=== PATIENT | male | born 1955 | race Caucasian/White ===

== ENCOUNTER 2019-06-26 08:54 | Inpatient (IN) ==
[2019-06-26] MEDS ORDERED: SODIUM CHLORIDE 0.9% 1000ML 1,000 ML IV ONE (09:19)
[2019-06-26 09:38] LABS: Basophils # (auto) 0.03 K/uL (0-0.2); Basophils % (auto) 0.3 %; Eosinophils # (auto) 0.09 K/uL (0-0.5); Eosinophils % (auto) 0.8 %; Hematocrit (blood only) 40.9 % (42-52); Hemoglobin 13.8 g/dL (14.0-18.0); Immature Granulocytes # (auto) 0.04 K/uL (0.00-0.02); Immature Granulocytes % (auto) 0.4 %; Lymphocytes # (auto) 1.63 K/uL (1.2-3.4); Mean Corpuscular Hemoglobin 30.5 pg (25-34); Mean Corpuscular Hgb Conc 33.7 g/dL (32-36); Mean Corpuscular Volume 90.3 fL (80-100); Mean Platelet Volume 9.4 fL (7.4-10.4); Monocytes # (auto) 0.67 K/uL (0.11-0.59); Monocytes % (auto) 6.2 %; Neutrophils # (auto) 8.38 K/uL (1.4-6.5); Neutrophils % (auto) 77.3 %; Platelet Count 178 K/uL (130-400); RDW Coefficient of Variation 13.2 % (11.5-14.5); RDW Standard Deviation 43.3 fL (36.4-46.3); Red Blood Count 4.53 M/uL (4.7-6.1); White Blood Count 10.84 K/uL (4.8-10.8)
--- NOTE | 2019-06-26 09:52 | CT Scan Report ---
CT head/brain wo con CLINICAL HISTORY: 63 years-old Male presenting with Pt c/o witnessed seizure lasting 1 to 2 minutes. TECHNIQUE: Multidetector CT imaging of the head was performed without the use of intravenous contrast . IV contrast: None. One or more dose lowering techniques were used consistent with the principles of ALARA (as low as reasonably achievable), including automatic exposure control, mA or kV adjustment t o individual patient size, and/or use of iterative reconstruction. COMPARISON: None. CT DOSE (mGy.cm): The estimated cumulative dose is 537.48 mGy.cm. 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 Ventricles and sulci normal in size. No hemorrhage. Extensive patchy periventricular and subcortical white matter hypoattenuation, nonspecific but likely indicative of chronic small vessel ischemic rojas ge. No acute territorial infarct. No mass effect or midline shift. No extra-axial fluid collection. P aranasal sinuses and mastoid air cells clear. Calvarium intact. IMPRESSION: 1. Presumed moderate to severe chronic small vessel ischemic change. The patchy nature of the diseas e makes the diagnosis less certain. Contrast enhanced brain MR could be considered for better evaluat ion to ensure the absence of underlying lesions. 2. No other evidence of acute intracranial abnormality. ACT 112: Negative or not required by law. Electronically signed by: Juvencio Frank M.D. 06/26/2019 9:50 AM
[2019-06-26 10:16] LABS: Alanine Aminotransferase 30 U/L (12-78); Albumin Globulin Ratio 0.8 (0.9-2); Albumin Level 3.2 gm/dl (3.4-5.0); Alkaline Phosphatase 76 U/L (45-117); BUN Creatinine Ratio 19.5 (10-20); Bilirubin,Total 1.3 mg/dl (0.2-1); Blood Urea Nitrogen 22 mg/dl (7-18); Calcium 8.5 mg/dl (8.5-10.1); Carbon Dioxide 21 mmol/L (21-32); Chloride 108 mmol/L (98-107); Creatine Kinase MB 1.8 ng/ml (0.5-3.6); Creatinine Clr Calc Pharmacy 77.5 ml/min; Est GFR (African American) 80.9; Est GFR (Non-African American) 69.8; Globulin 4.1 gm/dl (2.5-4.0); Glucose 147 mg/dl (70-99); Sodium 136 mmol/L (136-145); Total Protein 7.3 gm/dl (6.4-8.2); Troponin I 0.094 ng/ml (0-0.045)
[2019-06-26 10:56] LABS: Potassium 4.1 mmol/L (3.5-5.1)
[2019-06-26] MEDS ORDERED: GADOBUTROL 65ML VIAL IV PRN (12:48)
--- NOTE | 2019-06-26 12:54 | Magnetic Resonance Report ---
MRI OF THE BRAIN WITHOUT AND WITH IV CONTRAST CLINICAL HISTORY: Dizziness, seizure versus post syncope seizure-like activity. COMPARISON STUDY: Noncontrast head CT performed the same day. TECHNIQUE: MRI of the brain was performed from the vertex to the skull base utilizing various T1 and T2 weighted sequences. Following the IV administration of 10 mL of Gadavist contrast, additional enha nced images were obtained. FINDINGS: Sagittal T1, axial diffusion, proton density and T2 weighted axial, coronal FLAIR, and pre and post a xial T1-weighted images were acquired. These were supplemented with post gadolinium coronal T1 weight ed images. No intra or extra-axial mass lesions are visualized. Axial diffusion-weighted images reveal no evidence of acute or subacute infarction. There is no evidence of ventricular dilatation. Proton density T2-weighted and FLAIR images reveal extensive scattered foci of increased T2 signal wi thin the white matter, likely on a small vessel basis. The hippocampal formations appear symmetric. There are no abnormal flow voids. There is no evidence of pathologic enhancement. IMPRESSION: 1. No acute intracranial findings 2. No evidence of acute or subacute infarction 3. No evidence of intracranial mass 4. Extensive white matter disease likely on a small vessel ischemic basis ACT 112: Negative or not required by law. Electronically signed by: Shimon Hummel M.D. 06/26/2019 12:52 PM
--- NOTE | 2019-06-26 13:24 | Emergency Department Note ---
Entered by Suni Haro acting as a scribe for Ivan Quarles MD History of Present Illness General Chief complaint: Seizure Stated complaint: seizure Time Seen by Provider: 06/26/19 09:05 Source: patient Mode of arrival: EMS History of Present Illness Onset (ago): hour(s) less than 1 Location: head (seizure) Pain Consistency: + other (episode) Quality: + other (seizure) Associated symptoms: + seizure and + other (Positive fall, dizziness. Negative abdominal pain. hitting head. ); no headaches and no syncope Treatments prior to arrival: other (normal saline) The patient is a 63 year old male presenting to the Emergency Department via EMS complaining of an episode of a seizure occurring less than 1 hour ago. The patient reports that he went up to go to breakfast and began to seize. He states that he fell slowly to the ground and a interface control officer explained that the patient was lowered to the ground. The interface control officer reports that the patient seized for 1 to 2 minutes. The patient notes that he felt dizzy before he seized. 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 The patient reports that he has never seized before. He states that he has hyperlipidemia and no pertinent past surgical history. The patient denies hitting his head, headache and abdominal pain. Home Medications Home Medications Medication Instructions Recorded Confirmed Type rosuvastatin [Crestor] 40 mg PO DAILY 06/26/19 06/26/19 History Allergies Allergy/AdvReac Type Severity Reaction Status Date / Time No Known Allergies Allergy Unverified 06/26/19 09:40 Past Med/Surg History Medical History Hyperlipidemia Surgical History No pertinent past surgical history Social History Feels Safe at Home: Yes Smoking Status: Former smoker Review of Systems See HPI for pertinent positives & negatives. and A total of 10 systems reviewed and were otherwise negative Physical Exam Vital Signs Vital Signs - 24 hr 06/26/19 08:55 06/26/19 08:59 06/26/19 09:01 Temperature 36.4 C L Temperature Source Oral Pulse Rate 83 83 84 Pulse Rate [Finger] Pulse Rate from SpO2 Sensor 84 76 Respiratory Rate 20 17 21 Respiratory Effort / Characteristics Non-Labored Spontaneous Respiratory Depth Normal Respiratory Pattern Regular Blood Pressure 96/60 L 96/60 L 98/67 L Blood Pressure [Right Arm] Blood Pressure Mean 72 65 71 Blood Pressure Mean [Right Arm] Blood Pressure Position Lying Pulse Oximetry 88 L 90 89 L Oxygen Delivery Method Room Air Nasal Cannula Nasal Cannula Oxygen Flow Rate 2 2 Sepsis Recent Fever Within 48 Hours No Sepsis New/Unexplained Change in Mental Status No Sepsis Action Taken by Nursing No Action Required 06/26/19 09:02 06/26/19 09:15 06/26/19 09:16 Temperature Temperature Source Pulse Rate 82 106 H 80 Pulse Rate [Finger] Pulse Rate from SpO2 Sensor 79 92 H 80 Respiratory Rate 16 15 21 Respiratory Effort / Characteristics Respiratory Depth Respiratory Pattern Blood Pressure 105/67 Blood Pressure [Right Arm] Blood Pressure Mean 72 Blood Pressure Mean [Right Arm] Blood Pressure Position Pulse Oximetry 90 94 98 Oxygen Delivery Method Nasal Cannula Nasal Cannula Nasal Cannula Oxygen Flow Rate 2 2 2 Sepsis Recent Fever Within 48 Hours Sepsis New/Unexplained Change in Mental Status Sepsis Action Taken by Nursing 06/26/19 09:30 06/26/19 09:31 06/26/19 09:58 Temperature Temperature Source Pulse Rate 80 78 78 Pulse Rate [Finger] Pulse Rate from SpO2 Sensor 75 78 77 Respiratory Rate 18 17 17 Respiratory Effort / Characteristics Respiratory Depth Respiratory Pattern Blood Pressure 101/70 120/77 Blood Pressure [Right Arm] Blood Pressure Mean 83 92 Blood Pressure Mean [Right Arm] Blood Pressure Position Pulse Oximetry 96 97 99 Oxygen Delivery Method Nasal Cannula Nasal Cannula Nasal Cannula Oxygen Flow Rate 2 2 2 Sepsis Recent Fever Within 48 Hours Sepsis New/Unexplained Change in Mental Status Sepsis Action Taken by Nursing 06/26/19 10:00 06/26/19 10:01 06/26/19 10:15 Temperature Temperature Source Pulse Rate 79 80 85 Pulse Rate [Finger] Pulse Rate from SpO2 Sensor 77 73 66 Respiratory Rate 16 17 13 Respiratory Effort / Characteristics Respiratory Depth Respiratory Pattern Blood Pressure 108/74 111/75 Blood Pressure [Right Arm] Blood Pressure Mean 77 93 Blood Pressure Mean [Right Arm] Blood Pressure Position Pulse Oximetry 98 97 99 Oxygen Delivery Method Nasal Cannula Nasal Cannula Nasal Cannula Oxygen Flow Rate 2 2 2 Sepsis Recent Fever Within 48 Hours Sepsis New/Unexplained Change in Mental Status Sepsis Action Taken by Nursing 06/26/19 10:30 06/26/19 10:31 06/26/19 10:45 Temperature Temperature Source Pulse Rate 79 78 71 Pulse Rate [Finger] Pulse Rate from SpO2 Sensor 78 76 71 Respiratory Rate 16 16 15 Respiratory Effort / Characteristics Respiratory Depth Respiratory Pattern Blood Pressure 119/81 101/73 Blood Pressure [Right Arm] Blood Pressure Mean 97 83 Blood Pressure Mean [Right Arm] Blood Pressure Position Pulse Oximetry 99 98 99 Oxygen Delivery Method Nasal Cannula Nasal Cannula Nasal Cannula Oxygen Flow Rate 2 2 2 Sepsis Recent Fever Within 48 Hours Sepsis New/Unexplained Change in Mental Status Sepsis Action Taken by Nursing 06/26/19 10:46 06/26/19 11:00 06/26/19 11:01 Temperature Temperature Source Pulse Rate 72 75 74 Pulse Rate [Finger] Pulse Rate from SpO2 Sensor 72 75 75 Respiratory Rate 14 17 16 Respiratory Effort / Characteristics Respiratory Depth Respiratory Pattern Blood Pressure 130/86 Blood Pressure [Right Arm] Blood Pressure Mean 91 Blood Pressure Mean [Right Arm] Blood Pressure Position Pulse Oximetry 98 98 97 Oxygen Delivery Method Nasal Cannula Nasal Cannula Nasal Cannula Oxygen Flow Rate 2 2 2 Sepsis Recent Fever Within 48 Hours Sepsis New/Unexplained Change in Mental Status Sepsis Action Taken by Nursing 06/26/19 11:15 06/26/19 11:30 06/26/19 11:31 Temperature Temperature Source Pulse Rate 71 68 66 Pulse Rate [Finger] Pulse Rate from SpO2 Sensor 71 68 68 Respiratory Rate 15 14 14 Respiratory Effort / Characteristics Respiratory Depth Respiratory Pattern Blood Pressure 111/79 106/75 Blood Pressure [Right Arm] Blood Pressure Mean 85 83 Blood Pressure Mean [Right Arm] Blood Pressure Position Pulse Oximetry 98 98 98 Oxygen Delivery Method Nasal Cannula Nasal Cannula Nasal Cannula Oxygen Flow Rate 2 2 2 Sepsis Recent Fever Within 48 Hours Sepsis New/Unexplained Change in Mental Status Sepsis Action Taken by Nursing 06/26/19 11:45 06/26/19 11:46 06/26/19 12:00 Temperature Temperature Source Pulse Rate 67 65 66 Pulse Rate [Finger] Pulse Rate from SpO2 Sensor 69 64 65 Respiratory Rate 14 14 15 Respiratory Effort / Characteristics Respiratory Depth Respiratory Pattern Blood Pressure 112/77 113/67 Blood Pressure [Right Arm] Blood Pressure Mean 83 69 Blood Pressure Mean [Right Arm] Blood Pressure Position Pulse Oximetry 99 98 99 Oxygen Delivery Method Oxygen Flow Rate Sepsis Recent Fever Within 48 Hours Sepsis New/Unexplained Change in Mental Status Sepsis Action Taken by Nursing 06/26/19 12:01 06/26/19 12:54 06/26/19 12:55 Temperature Temperature Source Pulse Rate 65 Pulse Rate [Finger] 73 Pulse Rate from SpO2 Sensor 65 76 80 Respiratory Rate 16 16 Respiratory Effort / Characteristics Non-Labored Respiratory Depth Normal Respiratory Pattern Blood Pressure 118/78 Blood Pressure [Right Arm] 118/78 Blood Pressure Mean 88 Blood Pressure Mean [Right Arm] 91 Blood Pressure Position Pulse Oximetry 99 94 94 Oxygen Delivery Method Oxygen Flow Rate Sepsis Recent Fever Within 48 Hours Sepsis New/Unexplained Change in Mental Status Sepsis Action Taken by Nursing 06/26/19 13:00 Temperature Temperature Source Pulse Rate Pulse Rate [Finger] Pulse Rate from SpO2 Sensor 70 Respiratory Rate Respiratory Effort / Characteristics Respiratory Depth Respiratory Pattern Blood Pressure Blood Pressure [Right Arm] Blood Pressure Mean Blood Pressure Mean [Right Arm] Blood Pressure Position Pulse Oximetry 94 Oxygen Delivery Method Oxygen Flow Rate Sepsis Recent Fever Within 48 Hours Sepsis New/Unexplained Change in Mental Status Sepsis Action Taken by Nursing GENERAL: Awake, alert, well-appearing, in no acute distress HENT: Normocephalic, atraumatic. Oropharynx unremarkable. EYES: Normal conjunctiva. Sclera non-icteric. NECK: Supple. No nuchal rigidity. FROM. No JVD. RESPIRATORY: Clear to auscultation. CARDIAC: Regular rate, normal rhythm. Extremities warm and well perfused. Pulses equal. ABDOMEN: Soft, non-distended. No tenderness to palpation. No rebound or guarding. No masses. RECTAL: Deferred. MUSCULOSKELETAL: Chest examination reveals no tenderness. The back is symmetrical on inspection without obvious abnormality. There is no CVA tenderness to palpation. No joint edema. LOWER EXTREMITIES: Calves are equal size bilaterally and non-tender. No edema. No discoloration. NEURO: Normal sensorium. No sensory or motor deficits noted. SKIN: No rash or jaundice noted. Course Course 917: The patient was evaluated in room C8, and a complete history and physical examination were performed. 1041: I discussed the patients case with Alejandra West PA-C. Dr. Eugenio Bansal hospitalist will evaluate the patient for further management. 1045: I updated the patient at this time. Administered Medications Gadobutrol (Gadavist 65ml) 10 ml IV ONCE PRN PRN Reason: Interaction Checking Stop: 06/30/19 12:47 Last Admin: 06/26/19 12:49 Dose: 10 ml Documented by: [id number] Discontinued Medications Sodium Chloride (Nss 1000ml) 1,000 mls @ 999 mls/hr IV .Q1H1M ONE Stop: 06/26/19 10:19 Last Infusion: 06/26/19 10:34 Dose: 0 mls/hr Documented by: [id number] Admin: 06/26/19 09:28 Dose: 999 mls/hr Documented by: [id number] Medical Decision Making Differential Diagnosis Differential diagnosis includes etiologies such as infection, hypoglycemia, electrolyte abnormalities, cardiac sources, intracerebral event, trauma, toxicologic, neurologic, as well as others were entertained. Medical Records Attestation: I reviewed the patient's medical records. Home Medications Current Medication List: was personally reviewed by me Laboratory Data Attestation: I reviewed the patient's lab results. Result diagrams: 06/26/19 09:29 06/26/19 10:26 Lab Results 06/26/19 06/26/19 06/26/19 Range/Units 09:29 09:29 10:26 WBC 10.84 H (4.8-10.8) K/uL RBC 4.53 L (4.7-6.1) M/uL Hgb 13.8 L (14.0-18.0) g/dL Hct 40.9 L (42-52) % MCV 90.3 (80-100) fL MCH 30.5 (25-34) pg MCHC 33.7 (32-36) g/dL RDW Std Deviation 43.3 (36.4-46.3) fL RDW Coeff of Morales 13.2 (11.5-14.5) % Plt Count 178 (130-400) K/uL MPV 9.4 (7.4-10.4) fL Immature Gran % (Auto) 0.4 % Neut % (Auto) 77.3 % Lymph % (Auto) 15.0 % Glades % (Auto) 6.2 % Eos % (Auto) 0.8 % Baso % (Auto) 0.3 % Immature Gran # (Auto) 0.04 H (0.00-0.02) K/uL Neut # (Auto) 8.38 H (1.4-6.5) K/uL Lymph # (Auto) 1.63 (1.2-3.4) K/uL Glades # (Auto) 0.67 H (0.11-0.59) K/uL Eos # (Auto) 0.09 (0-0.5) K/uL Baso # (Auto) 0.03 (0-0.2) K/uL Sodium 136 (136-145) mmol/L Potassium 4.1 (3.5-5.1) mmol/L Chloride 108 H (98-107) mmol/L Carbon Dioxide 21 (21-32) mmol/L Anion Gap 7.0 (3-11) BUN 22 H (7-18) mg/dl Creatinine 1.13 (0.6-1.4) mg/dl Est Cr Clr Drug Dosing 77.5 ml/min Est GFR ( Amer) 80.9 Est GFR (Non-Af Amer) 69.8 BUN/Creatinine Ratio 19.5 (10-20) Glucose 147 H (70-99) mg/dl Calcium 8.5 (8.5-10.1) mg/dl Total Bilirubin 1.3 H (0.2-1) mg/dl AST 29 (15-37) U/L ALT 30 (12-78) U/L Alkaline Phosphatase 76 (45-117) U/L Total Creatine Kinase (39-308) U/L CK-MB (CK-2) 1.8 (0.5-3.6) ng/ml CK/CKMB % Calc TNP Troponin I 0.094 H* (0-0.045) ng/ml Total Protein 7.3 (6.4-8.2) gm/dl Albumin 3.2 L (3.4-5.0) gm/dl Globulin 4.1 H (2.5-4.0) gm/dl Albumin/Globulin Ratio 0.8 L (0.9-2) Imaging Data Radiologist's Impression: Radiology results as stated below per my review and the radiologist's interpretation: MRI OF THE BRAIN WITHOUT AND WITH IV CONTRAST CLINICAL HISTORY: Dizziness, seizure versus post syncope seizure-like activity. COMPARISON STUDY: Noncontrast head CT performed the same day. TECHNIQUE: MRI of the brain was performed from the vertex to the skull base utilizing various T1 and T2 weighted sequences. Following the IV administration of 10 mL of Gadavist contrast, additional enhanced images were obtained. FINDINGS: Sagittal T1, axial diffusion, proton density and T2 weighted axial, coronal FLAIR, and pre and post axial T1-weighted images were acquired. These were supplemented with post gadolinium coronal T1 weighted images. No intra or extra-axial mass lesions are visualized. Axial diffusion-weighted images reveal no evidence of acute or subacute infarction. There is no evidence of ventricular dilatation. Proton density T2-weighted and FLAIR images reveal extensive scattered foci of increased T2 signal within the white matter, likely on a small vessel basis. The hippocampal formations appear symmetric. There are no abnormal flow voids. There is no evidence of pathologic enhancement. IMPRESSION: 1. No acute intracranial findings 2. No evidence of acute or subacute infarction 3. No evidence of intracranial mass 4. Extensive white matter disease likely on a small vessel ischemic basis ACT 112: Negative or not required by law. Electronically signed by: Shimon Hummel M.D. 06/26/2019 12:[address] head/brain wo con CLINICAL HISTORY: 63 years-old Male presenting with Pt c/o witnessed seizure lasting 1 to 2 minutes. TECHNIQUE: Multidetector CT imaging of the head was performed without the use of intravenous contrast. IV contrast: None. One or more dose lowering techniques were used consistent with the principles of ALARA (as low as reasonably achievable), including automatic exposure control, mA or kV adjustment to individual patient size, and/or use of iterative reconstruction. COMPARISON: None. CT DOSE (mGy.cm): The estimated cumulative dose is 537.48 mGy.cm. FINDINGS: As[employer]er [employer] P[employer] topogram: Unremarkable. Ventricles and sulci normal in size. No hemorrhage. Extensive patchy periventricular and subcortical white matter hypoattenuation, nonspecific but likely indicative of chronic small vessel ischemic change. No acute territorial infarct. No mass effect or midline shift. No extra-axial fluid collection. Paranasal sinuses and mastoid air cells clear. Calvarium intact. IMPRESSION: 1. Presumed moderate to severe chronic small vessel ischemic change. The patchy nature of the disease makes the diagnosis less certain. Contrast enhanced brain MR could be considered for better evaluation to ensure the absence of underlying lesions. 2. No other evidence of acute intracranial abnormality. ACT 112: Negative or not required by law. Electronically signed by: Juvencio Frank M.D. 06/26/2019 9:50 AM ECG Data Attestation: I personally reviewed and interpreted this ECG as follows: Indication: + other (seizure) Rate (beats per minute): 79 Rhythm: + normal sinus ECG Intervals/blocks: + Normal QT-c (QT-c 474.) ECG ST segments: no ST depression and no ST elevation Blood Pressure Blood Pressure Findings: Elevated blood pressure Blood Pressure Disposition: further management by hospitalist MDM Narrative This is a 63-year-old male who presents emergency department complaining of seiz ure-like activity at his present. The patient felt weak and had to sit down. He does have an elevation in his white blood cell count as well as his troponin. In addition the patient has an abnormal CAT scan of the head. Because of this I did discuss the case with the hospitalist service. The patient was also sent for an MRI of the brain which does not show any acute process. Both patient and caregivers were in agreement with the treatment plan. Impression & Plan Syncope, Chest pain Discharge Plan Visit Data Chief Complaint: Seizure Stated Complaint: seizure ED Provider: Ivan Quarles Discharge Problem: Syncope, Chest pain Patient Disposition: Being Evaluated by Hospitalist Forms Stand Alone Forms: My [facility] [employer] Prescriptions Prescriptions: No Action rosuvastatin [Crestor] 40 mg Tablet 40 mg PO DAILY RF: 0 Referrals Referrals: Melo BAKER [Primary Care Provider] - Discharge Problem: Syncope Qualifiers: Syncope type: unspecified Qualified Code(s): R55 - Syncope and collapse Chest pain Qualifiers: Chest pain type: unspecified Qualified Code(s): R07.9 - Chest pain, unspecified The christopheibe's documentation has been prepared under my direction and personally reviewed by me in its entirety. I confirm that the note above accurately reflects all work, treatment, procedures, and medical decision making performed by me.
--- NOTE | 2019-06-26 13:42 | History & Physical Report ---
Date of Service June 26, 2019 Assessment & Plan (1) Pre-syncope: Repeat episodes with today's episode more pronounced and witnessed over the past two weeks. Patient describing symptoms consistent with possible unstable angina but with a broad differential. Will perform orthostatics qshift (noted that he received 1L of saline in the ER already). Monitor on tele and work up chest discomfort below. As there was some reports of possible seizure prompting a CT and subsequently an MRI this morning, will consult Neurology for their thoughts. (2) Chest pain: Atypical chest discomfort with exertion and sitting up, appears to be worsening over the past two weeks. No chest pain while supine today. Trend cardiac enzymes, monitor on tele. Cont statin, ASA 324 now. Echo to ensure no acute wall motion abnormalities and consult cardiology. (3) Elevated troponin: Echo as above. Trend. (4) Hyperlipidemia: Cont Crestor per home regimen. (5) DVT prophylaxis: Lovenox. Full Dispo-to telemetry. Possibly return to alf in 24-48 hours pending results of cardiac workup and specialist recommendations. [facility] of Present Illness Chief Complaint: fall this morning, chest discomfort Primary Care Provider: SAMUEL Alejo 63 yo M with no prior history of seizures presented to the ER after a fall and episode of shaking at the correction. Per the records he was seen to be shaking, however, per the patient, he reports feeling like he was getting weak and his legs were going to give out when he went to the [employer] today prompting him to ease himself down onto the floor. He did not lose consciousness. He denies any tongue biting or loss of bladder control. The current guards were not present for the episode and are not sure what was witnessed by staff. On further examination the patient was asked to sit up. He reported feeling some discomfort in his chest that appeared to cause some mild distress. He reports feeling this when getting up in the morning two weeks ago, and over this time, has been avoiding activities to avoid onset of this chest discomfort and weakness in his legs. 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 However, it seems that in the past two weeks he has been purposely staying more sedentary. He denies recent infections, fevers or chills, doesn't drink alcohol and denies drug use. He is a nonsmoker. He reports no sleep deprivation and has not started any new medications. ROS is otherwise negative including no SOB, nausea, vomiting, blood per rectum, UTI symptoms (does report some weak stream), headache, visual changes. Allergies Allergy/AdvReac Type Severity Reaction Status Date / Time No Known Allergies Allergy Unverified 06/26/19 09:40 Home Medications Home Medications Medication Instructions Recorded Confirmed Type rosuvastatin [Crestor] 40 mg PO DAILY 06/26/19 06/26/19 History Past Med/Surg History Medical History Hyperlipidemia Surgical History No pertinent past surgical history Family History Father Cancer Mother Cancer Social History Current Living Situation: Other Current Living Situation Comment: incarcerated Feels Safe at Home: Yes Smoking Status: Former smoker Hx Alcohol Use: No Hx Substance Use: No Review of Systems Review of Systems: All systems reviewed & are unremarkable except as noted in HPI & below Physical Exam Physical Exam: CONSTITUTIONAL: WNWD, vitals as above, generally well- appearing EYES: EOMI bilaterally, PERRL, normal conjunctivae, no scleral icterus ENT: external ear and nose normal, oropharynx clear, edentulous, MMM, no tongue trauma NECK: trachea midline RESPIRATORY: clear to auscultation bilaterally, no crackles, rales or wheezes, normal respiratory effort CARDIOVASCULAR: regular rate and rhythm, S1 and 2 heard without murmurs, gallops or rubs, no JVD, no peripheral edema CHEST: inspection of chest was normal GASTROINTESTINAL: soft, nontender, nondistended MUSCULOSKELETAL: strength 5/5 throughout, head is normocephalic and atraumatic, neck supple, normal palpation of chest wall without tenderness SKIN: warm and dry NEUROLOGIC: patellar DTRs-could not elicit as patient straining, 2+BR reflex o n right, unable to perform on left as patient was handcuffed. No facial palsy, no dysarthria. CN 2-12 grossly intact, no sensory deficit, normal cognition, normal speech, no tremor. Coordination: able to perform [id number] and Nara without issue. Gait not assessed as patient is a fall risk. PSYCHIATRIC: alert cooperative and oriented to person, place and time. Euthymic mood, makes good eye contact, language grossly intact, recent and remote memory grossly intact. Results & Data Vital Signs (Past 12 Hours) Vital Signs Temp Pulse Pulse Resp BP BP Pulse Ox 06/26/19 13:00 94 06/26/19 12:55 73 16 118/78 94 06/26/19 12:54 118/78 94 06/26/19 12:01 65 16 99 06/26/19 12:00 66 15 113/67 99 06/26/19 11:46 65 14 98 06/26/19 11:45 67 14 112/77 99 06/26/19 11:31 66 14 98 06/26/19 11:30 68 14 106/75 98 06/26/19 11:15 71 15 111/79 98 06/26/19 11:01 74 16 97 06/26/19 11:00 75 17 130/86 98 06/26/19 10:46 72 14 98 06/26/19 10:45 71 15 101/73 99 06/26/19 10:31 78 16 98 06/26/19 10:30 79 16 119/81 99 06/26/19 10:15 85 13 111/75 99 06/26/19 10:01 80 17 97 06/26/19 10:00 79 16 108/74 98 06/26/19 09:58 78 17 120/77 99 06/26/19 09:31 78 17 97 06/26/19 09:30 80 18 101/70 96 06/26/19 09:16 80 21 98 06/26/19 09:15 106 H 15 105/67 94 06/26/19 09:02 82 16 90 06/26/19 09:01 84 21 98/67 L 89 L 06/26/19 08:59 83 17 96/60 L 90 06/26/19 08:55 36.4 C L 83 20 96/60 L 88 L Laboratory Results Short CBC 06/26/19 Range/Units 09:29 WBC 10.84 H (4.8-10.8) K/uL Hgb 13.8 L (14.0-18.0) g/dL Hct 40.9 L (42-52) % Plt Count 178 (130-400) K/uL BMP 06/26/19 06/26/19 09:29 10:26 Sodium 136 Potassium 4.1 Chloride 108 H Carbon Dioxide 21 BUN 22 H Creatinine 1.13 Glucose 147 H Calcium 8.5 Cardiac Enzymes 06/26/19 Range/Units 09:29 Total Creatine Kinase (39-308) U/L CK-MB (CK-2) 1.8 (0.5-3.6) ng/ml Troponin I 0.094 H* (0-0.045) ng/ml Liver Function 06/26/19 06/26/19 Range/Units 09:29 10:26 Total Bilirubin 1.3 H (0.2-1) mg/dl AST 29 (15-37) U/L ALT 30 (12-78) U/L Alkaline Phosphatase 76 (45-117) U/L Albumin 3.2 L (3.4-5.0) gm/dl Medications Administered ASA 324mg NSS 1L ECG Additional Comments: SR with PACs, 79bpm, no ST changes, QTc 474 Code Status & VTE Plan Code Status Full VTE Prophylaxis Plan VTE Prophylaxis will be ordered: Yes (1) Chest pain Chest pain type: unspecified Qualified Code(s): R07.9 - Chest pain, unspecified
[2019-06-26] MEDS ORDERED: ASPIRIN CHEW 324 MG PO STA (14:19)
--- NOTE | 2019-06-26 15:15 | XRay Report ---
XR chest 2V PA/lateral CLINICAL HISTORY: chest discomfort, presyncope COMPARISON STUDY: No previous studies for comparison. FINDINGS: The bones soft tissues and hemidiaphragms are normal. The cardiomediastinal silhouette is n ormal. The lungs are clear. The pulmonary vasculature is normal. IMPRESSION: Negative chest. ACT 112: Negative or not required by law. The above report was generated using voice recognition software. It may contain grammatical, syntax or spelling errors. Electronically signed by: Levi Rodriguez M.D. 06/26/2019 3:14 PM
[2019-06-26] MEDS ORDERED: POLYETHYLENE (MIRALAX) 17 GM PACK PO PRN (15:34)
[2019-06-26] MEDS ORDERED: LORazepam 1 MG/2 ML VIAL IV PRN (15:34)
[2019-06-26] MEDS ORDERED: NITROGLYCERIN SL 0.4 MG/TAB TAB SL PRN (15:34)
[2019-06-26] MEDS ORDERED: ACETAMINOPHEN 325 MG TAB PO PRN (15:34)
[2019-06-26] MEDS ORDERED: INFLUENZA VIRUS QUAD VACCINE 0.5 ML SYR IM ONE (15:58)
[2019-06-26] MEDS ORDERED: INFLUENZA ADMINISTRATION CHARGE ONE (15:58)
[2019-06-26 16:43] LABS: Appearance Urine Clear (Clear); Bacteria Urine Automated Negative (Negative); Blood Urine Negative (Negative); Color Urine Dark Yellow; Glucose Urine UA Negative (Negative); Leukocyte Esterase Urine Negative (Negative); Nitrite Urine Positive (Negative); Protein Urine 1+ (Negative); Specific Gravity Urine 1.034 (1.000-1.030); Urobilinogen Urine Positive (Negative); pH Urine 5.5 (4.5-7.5)
[2019-06-26 16:45] LABS: Thyroid Stimulating Hormone 0.47 uIu/ml (0.300-4.500); Troponin I 0.426 ng/ml (0-0.045)
[2019-06-26 16:45] LABS: Bilirubin Urine Negative (Negative); Ictotest Urine Negative (Negative)
[2019-06-26 16:46] LABS: Ketones Urine 3+ (Negative)
[2019-06-26 17:05] LABS: Amphetamines+Metham, Urine Neg (Neg); Barbiturates, Urine Neg (Neg); Benzodiazepine, Urine Neg (Neg); Cocaine, Urine Neg (Neg); MDMA (Ecstacy), Urine Neg (Neg); Methadone, Urine Neg (Neg); Opiate, Urine Neg (Neg); Phencyclidine, Urine Neg (Neg)
[2019-06-26] MEDS ORDERED: HEPARIN IV BOLUS 6,000 UNITS in SYRINGE 0 ML IV ONE (19:15)
[2019-06-26 19:58] LABS: Partial Thromboplastin Ratio 1.1; Partial Thromboplastin Time 30.9 Seconds (21.0-31.0)
[2019-06-26] MEDS: HEPARIN SODIUM/DEXTROSE 25,000 UNITS/500 ML BAG IV SCH (20:19)
--- NOTE | 2019-06-27 00:20 | Electrocardiogram Report ---
Test Reason : Blood Pressure : / mmHG Vent. Rate : 079 BPM Atrial Rate : 079 BPM P-R Int : 150 ms QRS Dur : 094 ms QT Int : 414 ms P-R-T Axes : 071 022 029 degrees QTc Int : 474 ms Sinus rhythm with Premature atrial complexes Otherwise normal ECG No previous ECGs available Confirmed by Nasir Keys ([id number]) on 06/27/2019 12:19:31 AM Referred By: [facility] Confirmed By:Nasir Keys
[2019-06-27 02:54] LABS: Hematocrit (blood only) 40.7 % (42-52); Hemoglobin 13.5 g/dL (14.0-18.0); Mean Corpuscular Hemoglobin 30.1 pg (25-34); Mean Corpuscular Hgb Conc 33.2 g/dL (32-36); Mean Corpuscular Volume 90.6 fL (80-100); Platelet Count 181 K/uL (130-400); RDW Coefficient of Variation 13.1 % (11.5-14.5); RDW Standard Deviation 43.6 fL (36.4-46.3); Red Blood Count 4.49 M/uL (4.7-6.1); White Blood Count 10.17 K/uL (4.8-10.8)
[2019-06-27 03:11] LABS: Calcium 8.4 mg/dl (8.5-10.1); Creatinine Clr Calc Pharmacy 73.5 ml/min; Potassium 4.2 mmol/L (3.5-5.1)
[2019-06-27 03:20] LABS: Troponin I 0.266 ng/ml (0-0.045)
[2019-06-27 03:21] LABS: Partial Thromboplastin Time 53.5 Seconds (21.0-31.0)
[2019-06-27 05:54] LABS: Estimated Average Glucose 123 mg/dl; Hemoglobin A1C 5.9 % (4.5-5.6)
[2019-06-27] MEDS ORDERED: PERFLUTREN LIPID MICROSPHERE (DEFINITY) IV ONE (07:10)
[2019-06-27] MEDS ORDERED: ROSUVASTATIN CALCIUM 20 MG TAB PO SCH (09:00)
--- NOTE | 2019-06-27 09:27 | Cardiology Consultation ---
Date of Consultation June 27, 2019 Assessment & Plan (1) Syncope: (2) Chest pain: (3) Elevated troponin: Bedside 2D transthoracic echocardiogram demonstrating RV dilatation and dysfunction. I am concerned regarding potential acute pulmonary embolus. Stat CT angiogram of the chest ordered. Continue IV heparin at this time. If there is no evidence of pulmonary embolus, another consideration could be RCA territory infarction with RV involvement. Continue aspirin, statin, and IV heparin. Further recommendations pending review of CT angiogram result. History of Present Illness Reason for Consultation: Chest pain, elevated troponin Requesting Physician: Dr. Awad Attending Physician: Trenton Awad MD History of Present Illness 63-year-old patient presents to the emergency department with syncope and possible seizure-like activity. Patient describes sharp, pleuritic chest pain occurring yesterday. Reports pain has resolved this morning. Troponins are mildly elevated. ECG with diffuse T wave abnormality. Bedside 2D transthoracic echocardiogram demonstrates right ventricular enlargement, RV dysfunction with moderate pulmonary hypertension. Patient in his usual state of health until syncopal episode yesterday. On a day-to-day basis he is active. 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 Denies exertional chest pain or unusual shortness of breath. Denies personal history of coronary disease, congestive heart failure, rheumatic fever as a child, or diabetes. No recent surgical procedures or prolonged stasis. Allergies Allergy/AdvReac Type Severity Reaction Status Date / Time No Known Allergies Allergy Unverified 06/26/19 09:40 Home Medications Home Medications Medication Instructions Recorded Confirmed Type rosuvastatin [Crestor] 40 mg PO DAILY 06/26/19 06/26/19 History Patient History Medical History Hyperlipidemia Surgical History No pertinent past surgical history Family History Father Cancer Mother Cancer Social History Preferred Language: Azeri Communication Ability: Effective Security Consultant Required: No Beliefs That Will Affect Care: None Current Living Situation: Other Current Living Situation Comment: incarcerated Other Information That Helps Us Care for You: No Feels Safe at Home: Yes Safety Concerns: Feels Safe At This Time Smoking Status: Former smoker Hx Alcohol Use: No Hx Substance Use: No Review of Systems Review of Systems: All systems reviewed & are unremarkable except as noted in HPI & below Physical Exam Constitutional: well developed and well nourished; no acute distress and not ill appearing Respiratory: normal respiratory effort, lungs clear to auscultation Cardiovascular: Rate/Rhythm: regular rate and regular rhythm Heart Sounds: normal S1 and normal S2; no gallop, no murmur and no cardiac rub Palpation: normal PMI Vessels: radial pulses present; no JVD Extremities: no edema Gastrointestinal (Abdomen): Inspection/Auscultation: abdomen normal to inspection and normal bowel sounds; abdomen not distended Percussion/Palpation: abdomen soft; abdomen nontender, no guarding and abdomen not rigid Musculoskeletal: no cyanosis or clubbing, extremities motor strength 5/5 Skin: no rashes, warm and dry Neurologic: moves all extremities; no focal motor deficits Results & Data ([facility]) Vital Signs (Past 12 Hours) Vital Signs Temp Pulse Pulse Resp BP Pulse Ox 06/27/19 07:57 36.9 C 66 18 118/77 92 06/27/19 03:56 37.4 C 71 18 122/78 94 06/27/19 00:00 36.8 C 76 18 134/71 94 (1) Syncope Syncope type: unspecified Qualified Code(s): R55 - Syncope and collapse (2) Chest pain Chest pain type: unspecified Qualified Code(s): R07.9 - Chest pain, unspecified
[2019-06-27] MEDS: SODIUM CHLORIDE 0.9% 1000ML 1,000 ML IV SCH ×2 (10:02→12:35)
[2019-06-27 10:09] LABS: D Dimer 25540 ug/L FEU (0-500)
[2019-06-27] MEDS ORDERED: OPTIRAY 320 125ml IV PRN (10:15)
--- NOTE | 2019-06-27 10:32 | CT Scan Report ---
CT ANGIOGRAM OF THE CHEST CLINICAL HISTORY: Syncope. Atypical chest pain. COMPARISON STUDY: Chest x-ray dated 06/26/2019. TECHNIQUE: Following the IV administration of 120 cc of Optiray 320, CT angiogram of the chest was pe rformed from the upper abdomen to the thoracic inlet utilizing the pulmonary embolus protocol. Images are reviewed in the axial, sagittal, and coronal planes. 3-D MIPS images are created and assessed. I V contrast was administered without complication. A dose lowering technique was utilized adhering to the principles of ALARA. CT DOSE: 590.73 mGy.cm FINDINGS: Thyroid: Imaged portions of the thyroid gland are normal in size and attenuation. Thoracic aorta: There is mild atherosclerotic calcification of the thoracic aorta, with is normal in caliber and demonstrates standard 3-vessel arch anatomy. The thoracic aorta is not well opacified by IV contrast. Pulmonary vasculature: The pulmonary trunk is normal in caliber. There is saddle pulmonary embolus, w ith extensive thrombus within the main pulmonary arteries bilaterally which extends into all lobar br anches. Segmental and subsegmental pulmonary emboli are present throughout all lobes. Heart: The heart is top normal in size and without pericardial effusion. The coronary arteries are de nsely calcified. Lungs and pleural spaces: Evaluation of the lung parenchyma is degraded by motion artifact. There is no airspace consolidation typical for pneumonia or pleural effusion. Scarring/atelectasis is noted at the lung bases. There is a 7 mm left lower lobe pulmonary nodule seen on image #92. The trachea and central airways are clear. Mediastinum: There is no mediastinal lymphadenopathy. Jackie: Clear. Axillae: There is no axillary lymphadenopathy. Upper abdomen: There is a small hiatal hernia. Partially visualized upper abdominal viscera is otherw ise within normal limits. Skeletal structures: No lytic or blastic bony lesions are seen. IMPRESSION: 1. Saddle pulmonary embolus with extensive bilateral pulmonary emboli as above. 2. There is no airspace consolidation typical for pneumonia or pleural effusion. 3. A pathologically indeterminant 7 mm pulmonary nodule is seen in the left lower lobe. This can be f ollowed as per the Fleischner criteria. See below. Please refer to below summary of Fleischner criteria recommendations for follow-up of incidental CT n odules Jessie Ortiz, Guidelines for management of small pulmonary nodules detected on CT scans: A sta tement from the Fleischner Society, Radiology 237: [phone].) SOLID NODULES Solitary nodule size: <6 mm * low risk patients: no follow-up needed * high risk patients: optional CT at 12 months Solitary nodule size: 6-8 mm * low risk patients: follow-up at 6-12 months, then consider further follow-up at 18-24 months * high risk patients: initial follow-up CT at 6-12 months and then at 18-24 months if no change Solitary nodule size: >8 mm * either low or high risk patients - consider follow-up CT at 3 months, and/or CT-PET, and/or biopsy Multiple nodules size: <6 mm * low risk patients: no routine follow-up * high risk patients: optional CT at 12 months Multiple nodules size: 6-8 mm * low risk patients: follow-up at 3-6 months, then consider further follow-up at 18-24 months * high risk patients: follow-up at 3-6 months, then at 18-24 months if no change Multiple nodules size: >8 mm * low risk patients: follow-up at 3-6 months, then consider further follow-up at 18-24 months * high risk patients: follow-up at 3-6 months, then at 18-24 months if no change Note: newly detected indeterminate nodule in persons 35 years of age or older. * low risk patients: minimal or absent history of smoking and/or other known risk factors * high risk patients: history of smoking or of other known risk factors (e.g. first degree relative with lung cancer, or exposure to asbestos, radon, uranium) * if a nodule up to 8 mm is partly solid or is ground glass further follow-up is required after 24 m onths to exclude possible slow growing adenocarcinoma (AMALIA) SUBSOLID NODULES Solitary pure ground-glass nodule * nodule size <6 mm - no CT follow-up required * nodule size >=6 mm - follow-up CT at 6-12 months, then every 2 years until 5 years Solitary part-solid nodule * nodule size <6 mm - no CT follow-up required * nodule size >=6 mm - follow-up CT at 3-6 months. If unchanged, and solid component remains <6 mm, then annual follow-up for 5 years Multiple subsolid nodules * nodule size <6 mm - follow-up CT at 3-6 months, consider further follow-up at 2 and 4 years if sta ble * nodule size >=6 mm - follow-up CT at 3-6 months, subsequent management based on the most suspiciou s nodule(s) ACT 112: Negative or not required by law. Electronically signed by: George Ohara M.D. 06/27/2019 10:31 AM
--- NOTE | 2019-06-27 11:25 | Pulmonary Consultation ---
Date of Consultation June 27, 2019 Assessment & Plan (1) Syncope: Impression: 63-year-old male without significant prior pulmonary or hematologic history presents now with syncope and massive pulmonary embolism. His event likely occurred yesterday during his syncopal event. He is relatively stable currently with regards to heart rate and blood pressure as well as his oxygen requirement however given the severity of his clot and presenting with syncope as well as the echocardiogram findings, he is at high risk for complications including clinical deterioration, chronic thromboembolic pulmonary hypertension, and potential . I discussed with the patient risks and benefits of thrombolytic therapy. After careful consideration he is agreed to proceed with systemic thrombolysis. He will be transferred to the ICU for half dose TPA. Recommendations: 1. Pulmonary embolism with hemodynamic compromise: Transfer to ICU for telemetry monitoring. Will administer half dose TPA. Will hold heparin infusion during the 120-minute infusion of TPA and restart once PTT is appropria te. Anticipate will need least 5 days of heparin before transition to oral agents. Coumadin or NOAC may be appropriate. He will require lifelong anticoagulation given the unprovoked nature of his event. Could consider testing for inherited or acquired thrombophilia however this would not likely exchange consultant so would defer for now. 2. Syncopal event: Suspect this was related to his initial presentation of PE. Continue to follow. 3. Recommend age-appropriate cancer screening in the outpatient setting. Will need follow-up CT scan in 6 months for his indeterminate pulmonary nodule. 4. Pulmonary hypertension: Secondary to acute PE. Will need follow-up echocardiogram in 3 to 6 months. 47 minutes critical care time evaluating managing and stabilizing patient. Syncope type: unspecified Qualified Code(s): R55 - Syncope and collapse (2) Abnormal CT scan of lung: (3) Pulmonary embolism: History of Present Illness Attending Physician: Trenton Awad MD History of Present Illness Asked by hospitalist service to evaluate this patient with submassive PE presenting with syncope and seizure-like activity. History is obtained from review the electronic medical record as well as interview the patient the bedside. Patient is a 63-year-old incarcerated male without prior pulmonary history who presented to the emergency room yesterday with a syncopal episode and some myoclonic activity. He did have some chest pain as well. His work-up in the ER was unrevealing and he was admitted with a diagnosis of presyncope. Echocardiogram was obtained which demonstrated a dilated right ventricle with elevated pulmonary serial pressures. This led to a CT angiogram which demonstrated large saddle embolus. The patient has been initiated on heparin. We are consulted for additional management. The patient does not report a prior history of clotting or bleeding disorders. No trauma. No prolonged immobilization. Cancer screening is unknown. He does not relate a family history of sudden or unexplained cardiac . The patient does not report current palpitations chest pressure or shortness of breath. He is not hypoxemic. He is not tachypneic. He does not report significant lower extremity edema. Allergies Allergy/AdvReac Type Severity Reaction Status Date / Time No Known Allergies Allergy Unverified 06/26/19 09:40 Home Medications Home Medications Medication Instructions Recorded Confirmed Type rosuvastatin [Crestor] 40 mg PO DAILY 06/26/19 06/26/19 History Patient History Medical History Hyperlipidemia Surgical History No pertinent past surgical history Family History Father Cancer Mother Cancer Social History Preferred Language: Occitan Communication Ability: Effective Dirt Bike Racer Required: No Beliefs That Will Affect Care: None Current Living Situation: Other Current Living Situation Comment: incarcerated Other Information That Helps Us Care for You: No Feels Safe at Home: Yes Safety Concerns: Feels Safe At This Time Smoking Status: Former smoker Hx Alcohol Use: No Hx Substance Use: No Review of Systems Review of Systems: See H&P. No additions or deletions Physical Exam Constitutional: WD/WN, vitals as above Neck: trachea midline, no thyromegaly Respiratory: normal respiratory effort, lungs clear to auscultation Cardiovascular: RRR, no murmur, no edema Gastrointestinal (Abdomen): normal bowel sounds, soft, nontender, no hepato splenomegaly Musculoskeletal: Extremities: extremities normal to inspection Skin: no rashes, warm and dry Neurologic: Nonfocal exam Lymphatic: no cervical lymphadenopathy Results & Data ([facility]) Vital Signs (Past 12 Hours) Vital Signs Temp Pulse Pulse Resp BP Pulse Ox 06/27/19 07:57 36.9 C 66 18 118/77 92 06/27/19 03:56 37.4 C 71 18 122/78 94 06/27/19 00:00 36.8 C 76 18 134/71 94 Laboratory Results 06/27/19 02:39 06/27/19 02:[address] angiogram independently reviewed. CT ANGIOGRAM OF THE CHEST CLINICAL HISTORY: Syncope. Atypical chest pain. COMPARISON STUDY: Chest x-ray dated 06/26/2019. TECHNIQUE: Following the IV administration of 120 cc of Optiray 320, CT angiogram of the chest was performed from the upper abdomen to the thoracic inlet utilizing the pulmonary embolus protocol. Images are reviewed in the axial, sagittal, and coronal planes. 3-D MIPS images are created and assessed. IV contrast was administered without complication. A dose lowering technique was utilized adhering to the principles of ALARA. CT DOSE: 590.73 mGy.cm FINDINGS: Thyroid: Imaged portions of the thyroid gland are normal in size and attenua tion. Thoracic aorta: There is mild atherosclerotic calcification of the thoracic aorta, with is normal in caliber and demonstrates standard 3-vessel arch anatomy. The thoracic aorta is not well opacified by IV contrast. Pulmonary vasculature: The pulmonary trunk is normal in caliber. There is saddle pulmonary embolus, with extensive thrombus within the main pulmonary arteries bilaterally which extends into all lobar branches. Segmental and subsegmental pulmonary emboli are present throughout all lobes. Heart: The heart is top normal in size and without pericardial effusion. The coronary arteries are densely calcified. Lungs and pleural spaces: Evaluation of the lung parenchyma is degraded by motion artifact. There is no airspace consolidation typical for pneumonia or pleural effusion. Scarring/atelectasis is noted at the lung bases. There is a 7 mm left lower lobe pulmonary nodule seen on image #92. The trachea and central airways are clear. Mediastinum: There is no mediastinal lymphadenopathy. Jackie: Clear. Axillae: There is no axillary lymphadenopathy. Upper abdomen: There is a small hiatal hernia. Partially visualized upper abdominal viscera is otherwise within normal limits. Skeletal structures: No lytic or blastic bony lesions are seen. IMPRESSION: 1. Saddle pulmonary embolus with extensive bilateral pulmonary emboli as above. 2. There is no airspace consolidation typical for pneumonia or pleural effusion. 3. A pathologically indeterminant 7 mm pulmonary nodule is seen in the left lower lobe. This can be followed as per the Fleischner criteria. See below. PG Care Time/CCT Total # of Minutes Spent Total Time Spent with Patient: Total time spent is greater than 50% in coordination of care (as documented) at patient's floor/unit and/or counseling patient: Coding Level of Care Code None Diagnoses Syncope R55 Syncope type: unspecified Abnormal CT scan of lung R91.8 Pulmonary embolism I26.99 Time Spent (min) 47 Comment 47 minutes critical care time evaluating managing and coordinating care for patient. Patient has life-threatening illness with significant possibility of clinical deterioration including .
[2019-06-27] MEDS ORDERED: ALTEPLASE, RECOMBINANT 50 MG in EMPTY BAG 0 ML IV ONE (11:30)
--- NOTE | 2019-06-27 11:37 | Hospitalist Progress Note ---
Date of Service June 27, 2019 Assessment & Plan (1) Pre-syncope: -patient is from [facility] -as per ED notes on 06/26/2019: "The patient is a 63 year old male presenting to the Emergency Department via EMS complaining of an episode of a seizure occurring less than 1 hour ago. The patient reports that he went up to go to breakfast and began to seize. He states that he fell slowly to the ground and a aoc plans intelligence officer chief explained that the patient was lowered to the ground. The aoc plans intelligence officer chief reports that the patient seized for 1 to 2 minutes. The patient notes that he felt dizzy before he seized. He adds that he received normal saline from EMS LOSS PREVENTION ANALYST. The patient reports that he has never seized before. He states that he has hyperlipidemia and no pertinent past surgical history. The patient denies hitting his head, headache and abdominal pain." -admitting Hospitalist team that presyncopal symptoms and Atypical chest discomfort with exertion and sitting up, appears to be worsening over the past two weeks. -Patient had elevated troponin levels and was started on heparin drip on 06/27/2019 in case of acute coronary artery syndrome -06/27/2019 Patient is hemodynamically stable, normal heart rate, normal blood pressure, breathing on room air, awake and alert. Already on IV heparin drip anticoagulation initially because of elevated troponins.However, because of abnormal echocardiogram concerning for right heart strain or cor pulmonale, patient care technician instructor recommended CTA chest to rule out pulmonary embolism. Patient is found to have saddle embolism. Pulmonary consult recommended transfer to the ICU for direct lysis of the pulmonary embolism with TPA (2) Pulmonary embolism: Acute Pulmonary embolism with cor pulmonale -management as above -on exam there is no lower extremity swelling or calf tenderness. will have ultrasound of lower extremities to identify source of pulmonary embolism (3) Chest pain: -pleuritic chest pain from pulmonary embolism (4) Elevated troponin: -elevated troponins on admission likely from pulmonary embolism (5) Hyperlipidemia: -hold statins for now. consider resuming after TPA for pulmonary embolism (6) DVT prophylaxis: was on IV heparin drip and will get TPA in ICU Admission and Anticipated Discharge Date Admission Date: June 26, 2019, to go to ICU Subjective Patient is hemodynamically stable, normal heart rate, normal blood pressure, breathing on room air, awake and alert. Already on IV heparin drip anticoagulation initially because of elevated troponins.However, because of abnormal echocardiogram concerning for right heart strain or cor pulmonale, patient care technician instructor recommended CTA chest to rule out pulmonary embolism. Patient is found to have saddle embolism. Pulmonary consult recommended transfer to the ICU for direct lysis of the pulmonary embolism with TPA Review of Systems Review of Systems: All systems reviewed & are unremarkable except as noted in HPI & below Physical Exam Constitutional: WD/WN, vitals as above comfortable Eyes: PERRL, conjunctivae normal, anicteric sclerae EOM intact bilaterally ENMT: external ear and nose normal, oropharynx normal Neck: normal visual inspection Respiratory: normal respiratory effort, lungs clear to auscultation Cardiovascular: Rate/Rhythm: regular rate and regular rhythm Gastrointestinal (Abdomen): normal bowel sounds, soft, nontender, no hepatosplenomegaly Musculoskeletal: Head/Neck/Chest: normocephalic and head atraumatic Neurologic: PERRL, EOMI, accommodation nl, no face palsy, no dysarthria CN's II-XI intact bilaterally Psychiatric: A+Ox3, euthymic affect Results & Data ([facility]) Vital Signs (Past 12 Hours) Vital Signs Temp Pulse Pulse Pulse Resp BP Pulse Ox 06/27/19 08:00 68 06/27/19 07:57 36.9 C 66 18 118/77 92 06/27/19 03:56 37.4 C 71 18 122/78 94 06/27/19 00:00 36.8 C 76 18 134/71 94 (1) Chest pain Chest pain type: unspecified Qualified Code(s): R07.9 - Chest pain, unspecified
--- NOTE | 2019-06-27 13:59 | Neurology Consultation ---
Date of Consultation June 27, 2019 Assessment & Plan (1) Pre-syncope: 1. MRI - no evidence of stroke, lesions, extensive white matter changes. non specific 2. pre syncope - patient did not have a LOC would not recommend EEG at this time 3. CTA- saddle PE- ICU for heparin and management 4. cardiology and pulmonary on board 5. TTE- EF 60-65%, no ASD, RV pressure overload 6. carotid doppler - please order 7. in future if not on anticoagulation aspirin should be added. (2) Pulmonary embolism: (3) Elevated troponin: (4) Hyperlipidemia: Supervising Physician Co-Signing Physician Notes I have seen and discussed above patient with Dr Bárbara Dow, neurology. Pt seen and examined, lightheadedness and seconds of vertigo without other sx. MRI bl chronic ischemic changes. No prior hx of LOC or neurologic dysfunction. Exam cn, motor reflexes unremarkable. Presyncope, related to PE. Unrelated white matter changes related to hx of smoking, hyperlipidemia. If there is a time when pt does not need anticoagulant would need asa tx. Will sign off. MELVIN Dow MD History of Present Illness Reason for Consultation: seizure vs syncope Requesting Physician: Trenton Awad MD Attending Physician: Trenton Awad MD History of Present Illness Tawanda is a 63 year old incarnated male with PMH hyperlipidemia presented to the ER after a fall and episode of shaking. He was started getting weak and his legs were going to give out when he went to the [employer] today prompting him to ease himself down onto the floor and no LOC. He reported some discomfort in his chest that appeared to cause some mild distress. He reports feeling this when getting up in the morning two weeks ago, and over this time, has been avoiding activities to avoid onset of this chest discomfort and weakness in his legs and had been purposely staying more sedentary. He has a history of smoking ppd cigarettes since age 16. He stopped smoking when the halfway became non smoking building. There is a family history dad with heart attacks mom [place]. He has no personal history of seizure or episode of LOC or staring spells. Denies CP, SOB, abdominal pain, one sided weakness, numbness tingling, bowel or bladder loss, biting tongue. Allergies Allergy/AdvReac Type Severity Reaction Status Date / Time No Known Allergies Allergy Unverified 06/26/19 09:40 Home Medications Home Medications Medication Instructions Recorded Confirmed Type rosuvastatin [Crestor] 40 mg PO DAILY 06/26/19 06/26/19 History Patient History Medical History Hyperlipidemia Surgical History No pertinent past surgical history Family History Father Cancer Mother Cancer Social History Preferred Language: Lithuanian Communication Ability: Effective Quality Assurance Qa Lab Analyst Required: No Beliefs That Will Affect Care: None Current Living Situation: Other Current Living Situation Comment: incarcerated Other Information That Helps Us Care for You: No Feels Safe at Home: Yes Safety Concerns: Feels Safe At This Time Smoking Status: Former smoker Hx Alcohol Use: No Hx Substance Use: No Physical Exam Physical Exam: Physical Exam: Constitutional: appearance nourished, healthy and normal Ears, Nose, Mouth and Throat: no teeth mucous membranes moist, no injection and skin normal, eyes normal Cardiovascular: normal S-1 and S-2 and regular rate and rhythm Respiratory: course breath sounds Musculoskeletal: no peripheral edema and good distal pulses Skin: no stigmata of neurocutaneous disease noted and normal and intact Eyes: extraocular muscles intact (EOMI) and pupils equal, round and reactive to light (PERRL) NEUROLOGIC EXAMINATION: Mental status: Alert and interactive Oriented to full date and location Oriented to person Speech fluent with no evidence of aphasia Cranial Nerves smile eye brow raise symmetric Reflexes: Deep tendon reflexes were symmetrical and graded 2/5. Sensory: intact to light cool touch Gait/Stance: Posture normal sitting up in bed eating lunch. Gait no assessed. Strength: hand chore worker biceps triceps bilaterally 5/5, hip flex plantar flex ext 5/5 bilaterally Results & Data Vital Signs (Past 12 Hours) Vital Signs Temp Pulse Pulse Pulse Resp BP Pulse Ox 06/27/19 11:28 36.9 C 70 18 115/72 93 06/27/19 08:00 68 06/27/19 07:57 36.9 C 66 18 118/77 92 06/27/19 03:56 37.4 C 71 18 122/78 94 Laboratory Results Abnormal lab results 06/26/19 06/26/19 06/26/19 Range/Units 15:49 15:49 16:05 RBC (4.7-6.1) M/uL Hgb (14.0-18.0) g/dL Hct (42-52) % APTT (21.0-31.0) Seconds D-Dimer (0-500) ug/L FEU BUN (7-18) mg/dl Glucose (70-99) mg/dl Hemoglobin A1c 5.9 H (4.5-5.6) % Calcium (8.5-10.1) mg/dl Troponin I 0.426 H* (0-0.045) ng/ml Cholesterol 290 H (0-200) mg/dl Ur Specific [place] 1.034 H (1.000-1.030) Urine Protein 1+ H (Negative) Urine Ketones 3+ H (Negative) Urine Nitrite Positive A (Negative) Urine Urobilinogen Positive H (Negative) Urine RBC (Auto) 5-10 H (0-4) /hpf U Hyaline Cast (Auto) 5-10 H (0-5) /lpf U Epithel Cells (Auto) 5-10 H (0-5) /lpf 06/26/19 06/27/19 06/27/19 Range/Units 21:05 02:39 02:39 RBC 4.49 L (4.7-6.1) M/uL Hgb 13.5 L (14.0-18.0) g/dL Hct 40.7 L (42-52) % APTT (21.0-31.0) Seconds D-Dimer (0-500) ug/L FEU BUN 22 H (7-18) mg/dl Glucose 116 H (70-99) mg/dl Hemoglobin A1c (4.5-5.6) % Calcium 8.4 L (8.5-10.1) mg/dl Troponin I 0.427 H* 0.266 H* (0-0.045) ng/ml Cholesterol (0-200) mg/dl Ur Specific [place] (1.000-1.030) Urine Protein (Negative) Urine Ketones (Negative) Urine Nitrite (Negative) Urine Urobilinogen (Negative) Urine RBC (Auto) (0-4) /hpf U Hyaline Cast (Auto) (0-5) /lpf U Epithel Cells (Auto) (0-5) /lpf 06/27/19 06/27/19 Range/Units 02:39 09:27 RBC (4.7-6.1) M/uL Hgb (14.0-18.0) g/dL Hct (42-52) % APTT 53.5 H* (21.0-31.0) Seconds D-Dimer [id number] H* (0-500) ug/L FEU BUN (7-18) mg/dl Glucose (70-99) mg/dl Hemoglobin A1c (4.5-5.6) % Calcium (8.5-10.1) mg/dl Troponin I (0-0.045) ng/ml Cholesterol (0-200) mg/dl Ur Specific [place] (1.000-1.030) Urine Protein (Negative) Urine Ketones (Negative) Urine Nitrite (Negative) Urine Urobilinogen (Negative) Urine RBC (Auto) (0-4) /hpf U Hyaline Cast (Auto) (0-5) /lpf U Epithel Cells (Auto) (0-5) /lpf Diagnostic Findings CT head- Presumed moderate to severe chronic small vessel ischemic change. The patchy nature of the disease makes the diagnosis less certain. Contrast enhanced brain MR could be considered for better evaluation to ensure the absence of underlying lesions. No other evidence of acute intracranial abnormality. MRI brain-o acute intracranial findings No evidence of acute or subacute infarction No evidence of intracranial mass Extensive white matter disease likely on a small vessel ischemic basis CXR-Negative chest. CTA chest- Saddle pulmonary embolus with extensive bilateral pulmonary emboli. There is no airspace consolidation typical for pneumonia or pleural effusion. A pathologically indeterminant 7 mm pulmonary nodule is seen in the left lower lobe. This can be followed as per the Fleischner criteria.
--- NOTE | 2019-06-27 15:33 | Ultrasound Report ---
BILATERAL LOWER EXTREMITY VENOUS DOPPLER HISTORY: Evaluate for DVT. pulmonary embolism COMPARISON STUDY: None. FINDINGS: No DVT within the left lower extremity. There is occlusive thrombus seen within the right s uperficial femoral vein, popliteal vein, anterior tibial, posterior tibial, and peroneal veins. The r ight common femoral vein is patent. IMPRESSION: 1. Extensive right lower extremity DVT as described above. 2. No DVT within the left lower extremity. ACT 112: Negative or not required by law. Electronically signed by: Braeden Galvan M.D. 06/27/2019 3:32 PM
[2019-06-27 16:02] LABS: Partial Thromboplastin Ratio 1.5
[2019-06-27] MEDS ORDERED: Nursing to Pharmacy Communication ONE (16:10)
[2019-06-27] MEDS: HEPARIN SODIUM/DEXTROSE 25,000 UNITS/500 ML BAG IV SCH (16:38)
[2019-06-27 20:09] LABS: Partial Thromboplastin Ratio 1.6; Partial Thromboplastin Time 42.3 Seconds (21.0-31.0)
--- NOTE | 2019-06-27 20:32 | Ultrasound Report ---
US carotid doppler BI CLINICAL HISTORY: 63 years-old Male with multi focal vascular changes on MRI. Chronic microvascular ischemic disease COMPARISON: Brain MRI 06/26/2019 TECHNIQUE: Multiple real time sonographic images of the carotid bifurcations were obtained assessing montalvo scale, color Doppler and spectral wave form appearance FINDINGS: RIGHT CAROTID: The peak systolic velocity within the right ICA cm/sec. The end diastolic velocity measured 31 cm/sec. The ICA to CCA ratio measured 1.1 which correlates with a stenosis of 0-50%. Mild mixed plaque of the right carotid bulb. LEFT CAROTID: The peak systolic velocity within the left ICA [id number] cm/sec. The end diastolic v elocity measured 23 cm/sec. The ICA to CCA ratio measured 0.8 which correlates with a stenosis of 0-5 0%. Mild mixed plaque of the left carotid bulb. There is normal antegrade vertebral flow bilaterally. IMPRESSION: 1. No hemodynamically significant stenosis or significant atherosclerotic plaquing. 2. Normal antegrade vertebral flow bilaterally. ACT 112: Negative or not required by law. The above report was generated using voice recognition software. It may contain grammatical, syntax o r spelling errors. Electronically signed by: Crescencio Baker M.D. 06/27/2019 8:31 PM
[2019-06-27] MEDS ORDERED: HEPARIN IV BOLUS 3,000 UNITS in SYRINGE 0 ML IV STA (20:35)
--- NOTE | 2019-06-27 21:26 | Electrocardiogram Report ---
Test Reason : Blood Pressure : / mmHG Vent. Rate : 071 BPM Atrial Rate : 071 BPM P-R Int : 142 ms QRS Dur : 086 ms QT Int : 422 ms P-R-T Axes : 066 056 -33 degrees QTc Int : 458 ms Sinus rhythm with occasional Premature ventricular complexes T wave abnormality, consider inferior ischemia T wave abnormality, consider anterior ischemia Abnormal ECG When compared with ECG of 26-JUN-2019 09:04, Premature ventricular complexes are now Present Premature atrial complexes are no longer Present Inverted T waves have replaced nonspecific T wave abnormality in Inferior leads T wave inversion now evident in Anterior leads Confirmed by Nasir Keys ([id number]) on 06/27/2019 9:26:19 PM Referred By: [facility] Confirmed By:Nasir Keys
[2019-06-28] MEDS: SODIUM CHLORIDE 0.9% 1000ML 1,000 ML IV SCH (03:43)
[2019-06-28 04:59] LABS: Basophils # (auto) 0.05 K/uL (0-0.2); Basophils % (auto) 0.5 %; Eosinophils # (auto) 0.18 K/uL (0-0.5); Eosinophils % (auto) 1.8 %; Hematocrit (blood only) 38.1 % (42-52); Hemoglobin 12.7 g/dL (14.0-18.0); Immature Granulocytes # (auto) 0.03 K/uL (0.00-0.02); Immature Granulocytes % (auto) 0.3 %; Lymphocytes % (auto) 25.7 %; Mean Corpuscular Hemoglobin 29.8 pg (25-34); Mean Corpuscular Hgb Conc 33.3 g/dL (32-36); Mean Corpuscular Volume 89.4 fL (80-100); Monocytes # (auto) 0.83 K/uL (0.11-0.59); Monocytes % (auto) 8.2 %; Neutrophils # (auto) 6.44 K/uL (1.4-6.5); Neutrophils % (auto) 63.5 %; Platelet Count 207 K/uL (130-400); RDW Standard Deviation 42.4 fL (36.4-46.3); Red Blood Count 4.26 M/uL (4.7-6.1); White Blood Count 10.13 K/uL (4.8-10.8)
[2019-06-28 05:19] LABS: Partial Thromboplastin Ratio 1.9
[2019-06-28 05:25] LABS: Partial Thromboplastin Time 52.6 Seconds (21.0-31.0)
[2019-06-28 05:29] LABS: BUN Creatinine Ratio 16.7 (10-20); Calcium 8.1 mg/dl (8.5-10.1); Creatinine Clr Calc Pharmacy 98.2 ml/min; Magnesium 1.9 mg/dl (1.8-2.4); Phosphorus 2.9 mg/dl (2.5-4.9); Potassium 3.7 mmol/L (3.5-5.1)
--- NOTE | 2019-06-28 07:27 | Critical Care Progress Note ---
Date of Service June 28, 2019 Assessment & Plan (1) Syncope: Impression: 63-year-old male without significant prior pulmonary or hematologic history presents now with syncope and massive pulmonary embolism. His event likely occurred 06/26/19 and resulted in his syncopal event. Decision was made to initiate half dose TPA given the fact the patient presented with a syncopal event. This was administered 06/27/2019 and the patient has been monitored in the ICU post TPA for bleeding complication. Recommendations: 1. Pulmonary embolism with hemodynamic compromise: Status post 50 mg TPA. Heparin infusion back on. Monitoring PTTs. No signs of bleeding. Remains hemodynamically stable. Will observe in the ICU 24 hours post TPA administration and if does well can transfer back to the floor on telemetry. Will need lifelong anticoagulation. The patient does have an extensive right lower extremity DVT. No indication for IVC filter placement. Treated with heparin. Will need at least 5 days of heparin although if the patient remains stable can potentially transition to Lovenox. If transitioning to Coumadin, will need overlap of 24 hours of INR greater than or equal to 2 and at least 5 days of heparin. If transitioning to NOAC, only 5 days of heparin will be required and the NOAC can be started at that time. 2. Syncopal event: Suspect this was related to his initial presentation of PE. Continue to follow. 3. Recommend age-appropriate cancer screening in the outpatient setting. Will need follow-up CT scan in 6 months for his indeterminate pulmonary nodule. 4. Pulmonary hypertension: Secondary to acute PE. Will need follow-up echocardiogram in 3 to 6 months. Discussed with patient and bedside ICU nurse. (2) Abnormal CT scan of lung: (3) Pulmonary embolism: Subjective Patient seen and examined. EMR reviewed. No acute events overnight. He remains hemodynamically stable. No complications of bleeding associated with half dose TPA. He is tolerating a diet. Lower extremity ultrasound did demons trate DVT. Review of Systems Review of Systems: All systems reviewed & are unremarkable except as noted in HPI & below Physical Exam Constitutional: WD/WN, vitals as above Neck: trachea midline, no thyromegaly Respiratory: normal respiratory effort, lungs clear to auscultation Cardiovascular: RRR, no murmur, no edema Gastrointestinal (Abdomen): normal bowel sounds, soft, nontender, no hepatosplenomegaly Musculoskeletal: Extremities: extremities normal to inspection Skin: no rashes, warm and dry Lymphatic: no cervical lymphadenopathy Results & Data ([facility]) Vital Signs (Past 12 Hours) Vital Signs Temp Pulse Pulse Resp BP BP Pulse Ox 06/28/19 05:30 37.0 C 64 17 94 06/28/19 05:00 66 14 96 06/28/19 04:43 60 19 145/91 H 96 06/28/19 04:30 72 19 96 06/28/19 04:00 63 11 L 97 06/28/19 03:43 65 16 139/77 96 06/28/19 03:30 66 20 96 06/28/19 03:00 64 16 97 06/28/19 02:45 70 16 130/64 95 06/28/19 02:44 68 22 96 06/28/19 02:30 65 20 96 06/28/19 02:00 64 17 97 06/28/19 01:43 66 17 119/57 L 97 06/28/19 01:30 65 22 97 06/28/19 01:00 65 16 96 06/28/19 00:43 69 17 115/57 L 96 06/28/19 00:30 64 22 97 06/28/19 00:00 37.8 C H 68 17 97 06/27/19 23:43 65 19 135/76 96 06/27/19 23:30 74 23 97 06/27/19 23:00 78 19 91 06/27/19 22:43 68 20 126/76 97 06/27/19 22:30 66 20 136/68 97 06/27/19 22:00 68 97 06/27/19 21:43 68 133/74 97 06/27/19 21:39 71 06/27/19 21:30 37.3 C 71 72 16 135/71 94 06/27/19 21:00 68 95 06/27/19 20:43 69 135/71 96 06/27/19 20:30 70 98 06/27/19 20:00 37.3 C 76 94 06/27/19 19:43 69 128/80 97 06/27/19 19:30 76 93 Laboratory Results 06/28/19 04:36 06/28/19 04:36 Diagnostic Findings No new imaging Coding Level of Care Code 03838 Subseq Hosp Care Lvl 2 Diagnoses Syncope R55 Syncope type: unspecified Abnormal CT scan of lung R91.8 Pulmonary embolism I26.99 (1) Syncope Syncope type: unspecified Qualified Code(s): R55 - Syncope and collapse
[2019-06-28] MEDS ORDERED: MAGNESIUM SULFATE / D5W 1 GM/100 ML BAG IV ONE (07:32)
[2019-06-28] MEDS ORDERED: OXYCODONE HCL IR 5 MG TAB (IMMEDIATE RELEASE) PO PRN (09:13)
[2019-06-28] MEDS ORDERED: ACETAMINOPHEN 325 MG TAB PO PRN (09:13)
--- NOTE | 2019-06-28 09:13 | Hospitalist Progress Note ---
Date of Service June 28, 2019 Assessment & Plan (1) Pre-syncope: -patient is from [facility] -as per ED notes on 06/26/2019: "The patient is a 63 year old male presenting to the Emergency Department via EMS complaining of an episode of a seizure occurring less than 1 hour ago. The patient reports that he went up to go to breakfast and began to seize. He states that he fell slowly to the ground and a submarine advisory team watch officer explained that the patient was lowered to the ground. The submarine advisory team watch officer reports that the patient seized for 1 to 2 minutes. The patient notes that he felt dizzy before he seized. He adds that he received normal saline from EMS CHEF UNDER. The patient reports that he has never seized before. He states that he has hyperlipidemia and no pertinent past surgical history. The patient denies hitting his head, headache and abdominal pain." -admitting Hospitalist team that presyncopal symptoms and Atypical chest discomfort with exertion and sitting up, appears to be worsening over the past two weeks. -Patient had elevated troponin levels and was started on heparin drip on 06/27/2019 in case of acute coronary artery syndrome -06/27/2019: Patient is hemodynamically stable, normal heart rate, normal blood pressure, breathing on room air, awake and alert. Already on IV heparin drip anticoagulation initially because of elevated troponins.However, because of abnormal echocardiogram concerning for right heart strain or cor pulmonale, process pumper recommended CTA chest to rule out pulmonary embolism. Patient is found to have saddle embolism. Pulmonary consult recommended transfer to the ICU for lysis of the pulmonary embolism with TPA. TPA was given on 06/27/2019 -06/28/2019. Plans are for patient to remain in ICU until 24 hour has elapse from TPA administration. Patient on IV heparin drip. no distress. breathing on room air. no chest pain. no dizziness. no headache. patient will remain on IV heparin drip once he is transferred out of ICU. Have asked case management to discuss with correctional facility about available oral anticoagulants versus subcutaneous when outpatient (2) Pulmonary embolism: Acute Pulmonary embolism with cor pulmonale -management as above acute right lower extremity DVT -patient given TPA in the ICU on 06/27/2019, subsequent workup found right lower extremity DVT on ultrasound and therefor is the source of the pulmonary embolism 1. Extensive right lower extremity DVT 2. No DVT within the left lower extremity -management of anticoagulation as above -prn pain medications (3) Chest pain: -pleuritic chest pain from pulmonary embolism (4) Elevated troponin: -elevated troponins on admission likely from pulmonary embolism (5) Hyperlipidemia: -resume statin (6) DVT prophylaxis: on IV heparin Admission and Anticipated Discharge Date Admission Date: June 26, 2019, discharge date is undetermined Subjective Plans are for patient to remain in ICU until 24 hour has elapse from TPA a dministration. Patient on IV heparin drip. no distress. breathing on room air. no chest pain. no dizziness. no headache. patient will remain on IV heparin drip once he is transferred out of ICU. Have asked case management to discuss with correctional facility about available oral versus subcutaneous anticoagulants when outpatient Review of Systems Review of Systems: All systems reviewed & are unremarkable except as noted in HPI & below Physical Exam Constitutional: WD/WN, vitals as above comfortable Eyes: PERRL, conjunctivae normal, anicteric sclerae EOM intact bilaterally ENMT: external ear and nose normal, oropharynx normal Neck: normal visual inspection Respiratory: normal respiratory effort, lungs clear to auscultation Cardiovascular: Rate/Rhythm: regular rate and regular rhythm Gastrointestinal (Abdomen): normal bowel sounds, soft, nontender, no hepatosplenomegaly Musculoskeletal: Head/Neck/Chest: normocephalic and head atraumatic Neurologic: PERRL, EOMI, accommodation nl, no face palsy, no dysarthria CN's II-XI intact bilaterally Psychiatric: A+Ox3, euthymic affect Results & Data ([facility]) Vital Signs (Past 12 Hours) Vital Signs Temp Pulse Pulse Resp BP BP Pulse Ox 06/28/19 05:30 37.0 C 64 17 94 06/28/19 05:00 66 14 96 06/28/19 04:43 60 19 145/91 H 96 06/28/19 04:30 72 19 96 06/28/19 04:00 63 11 L 97 06/28/19 03:43 65 16 139/77 96 06/28/19 03:30 66 20 96 06/28/19 03:00 64 16 97 06/28/19 02:45 70 16 130/64 95 06/28/19 02:44 68 22 96 06/28/19 02:30 65 20 96 06/28/19 02:00 64 17 97 06/28/19 01:43 66 17 119/57 L 97 06/28/19 01:30 65 22 97 06/28/19 01:00 65 16 96 06/28/19 00:43 69 17 115/57 L 96 06/28/19 00:30 64 22 97 06/28/19 00:00 37.8 C H 68 17 97 06/27/19 23:43 65 19 135/76 96 06/27/19 23:30 74 23 97 06/27/19 23:00 78 19 91 06/27/19 22:43 68 20 126/76 97 06/27/19 22:30 66 20 136/68 97 06/27/19 22:00 68 97 06/27/19 21:43 68 133/74 97 06/27/19 21:39 71 06/27/19 21:30 37.3 C 71 72 16 135/71 94 (1) Chest pain Chest pain type: unspecified Qualified Code(s): R07.9 - Chest pain, unspecified
[2019-06-28] MEDS: ROSUVASTATIN CALCIUM 20 MG TAB PO SCH (10:47)
[2019-06-28 11:21] LABS: Partial Thromboplastin Ratio 1.6; Partial Thromboplastin Time 43.9 Seconds (21.0-31.0)
[2019-06-28] MEDS: HEPARIN SODIUM/DEXTROSE 25,000 UNITS/500 ML BAG IV SCH ×2 (11:39→14:41)
[2019-06-28] MEDS ORDERED: HEPARIN IV BOLUS 3,000 UNITS in SYRINGE 0 ML IV ONE (13:30)
[2019-06-28] MEDS ORDERED: WARFARIN SOD 5 MG TAB PO ONE ×2 (16:29→17:48)
[2019-06-28 17:17] LABS: INR 1.3 (0.9-1.1)
--- NOTE | 2019-06-28 18:11 | Electrocardiogram Report ---
Test Reason : Blood Pressure : / mmHG Vent. Rate : 064 BPM Atrial Rate : 064 BPM P-R Int : 140 ms QRS Dur : 078 ms QT Int : 416 ms P-R-T Axes : 071 019 -29 degrees QTc Int : 429 ms Sinus rhythm with marked sinus arrhythmia T wave abnormality, consider inferior ischemia Abnormal ECG When compared with ECG of 27-JUN-2019 06:37, Premature ventricular complexes are no longer Present T wave inversion no longer evident in Anterior leads Confirmed by Henry Hope ([id number] on 06/28/2019 6:10:48 PM Referred By: [facility] Confirmed By:Tray Hope
[2019-06-28 20:11] LABS: Partial Thromboplastin Ratio 1.8
[2019-06-28 20:22] LABS: Partial Thromboplastin Time 47.8 Seconds (21.0-31.0)
[2019-06-29] MEDS: HEPARIN SODIUM/DEXTROSE 25,000 UNITS/500 ML BAG IV SCH ×4 (04:27→20:56)
[2019-06-29 06:41] LABS: Basophils # (auto) 0.05 K/uL (0-0.2); Basophils % (auto) 0.6 %; Eosinophils # (auto) 0.33 K/uL (0-0.5); Eosinophils % (auto) 3.7 %; Hematocrit (blood only) 38.4 % (42-52); Hemoglobin 12.8 g/dL (14.0-18.0); Immature Granulocytes # (auto) 0.02 K/uL (0.00-0.02); Immature Granulocytes % (auto) 0.2 %; Lymphocytes # (auto) 2.17 K/uL (1.2-3.4); Lymphocytes % (auto) 24.3 %; Mean Corpuscular Hemoglobin 29.8 pg (25-34); Mean Corpuscular Hgb Conc 33.3 g/dL (32-36); Mean Corpuscular Volume 89.3 fL (80-100); Mean Platelet Volume 9.1 fL (7.4-10.4); Monocytes # (auto) 0.71 K/uL (0.11-0.59); Monocytes % (auto) 7.9 %; Neutrophils # (auto) 5.66 K/uL (1.4-6.5); Neutrophils % (auto) 63.3 %; Platelet Count 248 K/uL (130-400); RDW Coefficient of Variation 12.8 % (11.5-14.5); RDW Standard Deviation 41.2 fL (36.4-46.3); White Blood Count 8.94 K/uL (4.8-10.8)
[2019-06-29 07:00] LABS: INR 1.1 (0.9-1.1); Partial Thromboplastin Ratio 1.6; Partial Thromboplastin Time 42.7 Seconds (21.0-31.0); Prothrombin Time 11.6 Seconds (9.0-12.0)
[2019-06-29] MEDS ORDERED: HEPARIN IV BOLUS 3,000 UNITS in SYRINGE 0 ML IV ONE ×2 (07:30→20:50)
[2019-06-29] MEDS: ROSUVASTATIN CALCIUM 20 MG TAB PO SCH (07:35)
--- NOTE | 2019-06-29 09:13 | Hospitalist Progress Note ---
Date of Service June 29, 2019 Assessment & Plan (1) Pre-syncope: -patient is from [facility] facility -as per ED notes on 06/26/2019: "The patient is a 63 year old male presenting to the Emergency Department via EMS complaining of an episode of a seizure occurring less than 1 hour ago. The patient reports that he went up to go to breakfast and began to seize. He states that he fell slowly to the ground and a correctional food service supervisor explained that the patient was lowered to the ground. The correctional food service supervisor reports that the patient seized for 1 to 2 minutes. The patient notes that he felt dizzy before he seized. He adds that he received normal saline from EMS CONTROL TOWER RADIO OPERATOR. The patient reports that he has never seized before. He states that he has hyperlipidemia and no pertinent past surgical history. The patient denies hitting his head, headache and abdominal pain." -admitting Hospitalist team that presyncopal symptoms and Atypical chest discomfort with exertion and sitting up, appears to be worsening over the past two weeks. -Patient had elevated troponin levels and was started on heparin drip on 06/27/2019 in case of acute coronary artery syndrome -06/27/2019: Patient is hemodynamically stable, normal heart rate, normal blood pressure, breathing on room air, awake and alert. Already on IV heparin drip anticoagulation initially because of elevated troponins.However, because of abnormal echocardiogram concerning for right heart strain or cor pulmonale, epic director recommended CTA chest to rule out pulmonary embolism. Patient is found to have saddle embolism. Pulmonary consult recommended transfer to the ICU for lysis of the pulmonary embolism with TPA. TPA was given on 06/27/2019 -06/28/2019. Plans are for patient to remain in ICU until 24 hour has elapse from TPA administration. Patient on IV heparin drip. no distress. breathing on room air. no chest pain. no dizziness. no headache. patient will remain on IV heparin drip after transfer from telemetry to ICU and given 1 dose of 5 mg coumadin -06/29/2019: alerted by nurse that patient has right knee swelling and cannot weight bear on the right leg, and patient seen by Dr. Amin pulmonary/critical care physician and he comments the patient may have had bled into right knee. of course, patient has high clot burden of pulmonary embolism and right leg DVT so systemic anticoagulation with IV heparin cannot be stopped at this time. will get orthopedic consult to evaluate if any need to drain the right knee. will continue IV heparin for now, although if there is an orthopedic procedure the IV heparin can be held temporarily. will also hold further coumadin for now. get X ray of right knee and place NPO for now. Patient had breakfast on 06/29/2019. (2) Pulmonary embolism: Acute Pulmonary embolism with cor pulmonale -management as above acute right lower extremity DVT -patient given TPA in the ICU on 06/27/2019, subsequent workup found right lower extremity DVT on ultrasound and therefor is the source of the pulmonary embolism 1. Extensive right lower extremity DVT 2. No DVT within the left lower extremity -management of anticoagulation as above -prn pain medications (3) Chest pain: -pleuritic chest pain from pulmonary embolism -chest pain generally resolved (4) Elevated troponin: -elevated troponins on admission likely from pulmonary embolism (5) Hyperlipidemia: -resume statin (6) DVT prophylaxis: on IV heparin Admission and Anticipated Discharge Date Admission Date: June 26, 2019 Subjective alerted by nurse that patient has right knee swelling and cannot weight bear on the right leg, and patient seen by Dr. Amin pulmonary/critical care physician and he comments the patient may have had bled into right knee. of course, patient has high clot burden of pulmonary embolism and right leg DVT so systemic anticoagulation with IV heparin cannot be stopped at this time. will get orthopedic consult to evaluate if any need to drain the right knee. will continue IV heparin for now, although if there is an orthopedic procedure the IV heparin can be held temporarily. will also hold further coumadin for now. get X ray of right knee and place NPO for now. Patient had breakfast on 06/29/2019. breathing on room air, no chest pain, no shortness of breath. no dizziness. no headache. patient is not in acute distress. able to move the feet and legs. reports that right leg feels heavy because of the right knee swelling Review of Systems Review of Systems: All systems reviewed & are unremarkable except as noted in HPI & below Physical Exam Constitutional: WD/WN, vitals as above comfortable Eyes: PERRL, conjunctivae normal, anicteric sclerae EOM intact bilaterally ENMT: external ear and nose normal, oropharynx normal Neck: normal visual inspection Respiratory: normal respiratory effort, lungs clear to auscultation Cardiovascular: Rate/Rhythm: regular rate and regular rhythm Gastrointestinal (Abdomen): normal bowel sounds, soft, nontender, no hepatosplenomegaly Musculoskeletal: Head/Neck/Chest: normocephalic and head atraumatic right knee swelling Neurologic: PERRL, EOMI, accommodation nl, no face palsy, no dysarthria CN's II-XI intact bilaterally Psychiatric: A+Ox3, euthymic affect Results & Data ([facility]) Vital Signs (Past 12 Hours) Vital Signs Temp Pulse Pulse Pulse Resp BP Pulse Ox 06/29/19 08:04 37.3 C 63 18 130/75 94 06/29/19 04:28 37.2 C 61 18 138/67 96 06/29/19 00:01 68 06/28/19 22:55 37.3 C 64 19 151/79 H 97 (1) Chest pain Chest pain type: unspecified Qualified Code(s): R07.9 - Chest pain, unspecified
--- NOTE | 2019-06-29 09:19 | Pulmonology Progress Note ---
Date of Service June 29, 2019 Assessment & Plan (1) Syncope: Impression: 63-year-old male without significant prior pulmonary or hematologic history presents now with syncope and massive pulmonary embolism. His event likely occurred 06/26/19 and resulted in his syncopal event. Decision was made to initiate half dose TPA given the fact the patient presented with a syncopal event. This was administered 06/27/2019. Patient does complain of some right knee pain Recommendations: 1. Pulmonary embolism with hemodynamic compromise: Status post 50 mg TPA. Heparin infusion back on. Monitoring PTTs. The patient does have an extensive right lower extremity DVT. No indication for IVC filter placement. Treated with heparin. Will need at least 5 days of heparin although if the patient remains stable can potentially transition to Lovenox. If transitioning to Coumadin, will need overlap of 24 hours of INR greater than or equal to 2 and at least 5 days of heparin. If transitioning to NOAC, only 5 days of heparin will be required and the NOAC can be started at that time. 2. Syncopal event: Suspect this was related to his initial presentation of PE. Continue to follow. 3. Recommend age-appropriate cancer screening in the outpatient setting. Will need follow-up CT scan in 6 months for his indeterminate pulmonary nodule. 4. Pulmonary hypertension: Secondary to acute PE. Will need follow-up echocardiogram in 3 to 6 months. 5. Right knee pain: Management per primary service. The patient certainly is at risk for hemarthrosis given anticoagulation and TPA administration. Orthopedics consult may be appropriate for aspiration of the knee as well as imaging. Again will defer to primary service Patient is doing well from a respiratory standpoint. Will sign off at this point time. Feel free to contact us with questions or concerns or changes in his clinical status. Syncope type: unspecified Qualified Code(s): R55 - Syncope and collapse (2) Abnormal CT scan of lung: (3) Pulmonary embolism: Subjective Patient seen and examined. EMR reviewed. The patient completed TPA and is transferred back to the floor. He is doing well from a respiratory standpoint and denies any chest pain palpitations or shortness of breath. He is not experienced any syncope or presyncope. The patient's main complaint currently is right knee pain. He states his right knee has become more swollen and he can no longer weight-bear on that extremity. He states he did have pain for several weeks prior to admission but currently his pain is somewhat worse. States he cannot really bend the joint Review of Systems Review of Systems: All systems reviewed & are unremarkable except as noted in HPI & below Physical Exam Constitutional: WD/WN, vitals as above Neck: trachea midline, no thyromegaly Respiratory: normal respiratory effort, lungs clear to auscultation Cardiovascular: RRR, no murmur, no edema Gastrointestinal (Abdomen): normal bowel sounds, soft, nontender, no hepatosplenomegaly Musculoskeletal: Right knee swollen and painful to palpation. Skin: no rashes, warm and dry Lymphatic: no cervical lymphadenopathy Results & Data ([facility]) Vital Signs (Past 12 Hours) Vital Signs Temp Pulse Pulse Pulse Resp BP Pulse Ox 06/29/19 08:04 37.3 C 63 18 130/75 94 06/29/19 04:28 37.2 C 61 18 138/67 96 06/29/19 00:01 68 06/28/19 22:55 37.3 C 64 19 151/79 H 97 Laboratory Results 06/29/19 06:10 06/28/19 04:36 No significant decrease in hemoglobin or mass Diagnostic Findings No new imaging PG Care Time/CCT Total # of Minutes Spent Total Time Spent with Patient: Total time spent is greater than 50% in coordination of care (as documented) at patient's floor/unit and/or counseling patient: Coding Level of Care Code 53490 Subseq Hosp Care Lvl 2 Diagnoses Syncope R55 Syncope type: unspecified Abnormal CT scan of lung R91.8 Pulmonary embolism I26.99
--- NOTE | 2019-06-29 09:29 | XRay Report ---
XR knee RT 1 or 2V routine CLINICAL HISTORY: right knee swelling COMPARISON: None. DISCUSSION: Joint effusion. No acute bony abnormality. Cortical margins appear to be intact. No evide nce for bony destructive process. There is no evidence for soft tissue swelling. IMPRESSION: Joint effusion. Otherwise negative study. ACT 112: Negative or not required by law. The above report was generated using voice recognition software. It may contain grammatical, syntax or spelling errors. Electronically signed by: Levi Rodriguez M.D. 06/29/2019 9:28 AM
[2019-06-29] MEDS ORDERED: BUPIVACAINE 0.25% 30 ML VIAL INFIL ONE (09:46)
[2019-06-29] MEDS ORDERED: ETHYL CHLORIDE AER PER SPRAY 100 ML CAN EXT ONE (09:46)
--- NOTE | 2019-06-29 09:51 | Consultation Report ---
DATE OF CONSULTATION: 06/29/2019 ORTHOPEDIC SURGERY CONSULTATION Special attention to right knee swelling. HISTORY OF PRESENT ILLNESS: This is a 63-year-old male prisoner who was admitted initially with possibility of seizure. He was subsequently diagnosed with pulmonary embolism and DVT in the right leg. He was placed on tPA. He is also placed on a heparin drip. He notes the onset of swelling over the past several hours in the right knee. He does admit to intermittent history of swelling in the right knee over the past several months. He says his knee would go up and down in size with swelling and effusion. We are consulted urgently regarding possible bleeding into the knee given that he is on tPA. HOME MEDICATIONS: Crestor. PAST MEDICAL HISTORY: Hyperlipidemia. OBJECTIVE: Right knee examination does show moderate to large effusion over the knee. He has no erythema and no redness. He has nothing to suggest acute bacterial infection. He can flex and extend the knee to a small degree but exam is limited secondary to discomfort. Right calf exam does show no significant tenderness or swelling in the calf area. ASSESSMENT: A 63-year-old male prisoner with right knee effusion. PLAN: I discussed findings and treatment with the patient. Differential diagnosis can include Lyme disease, gout, pseudogout, acute bleeding into the knee. Given history of intermittent swelling prior, it is possible this may represent Lyme disease or gouty arthropathy. I discussed with Dr. Awad aspiration of the knee and he does request this be done. We will hold his heparin drip for 4 hours and subsequently plan for aspiration of the knee. Current PTT is 47.2 at 6:00 this morning. Radiographs 3 views of the right knee show no acute fracture or dislocation. He has no significant degenerative changes in the knee. I do not detect any calcification in the meniscus or otherwise.
[2019-06-29] MEDS ORDERED: ETHYL CHLORIDE AER SPR 100 ML CAN EXT ONE (10:00)
--- NOTE | 2019-06-29 12:39 | Procedure Note ---
Procedure Note Date of Service June 29, 2019 Note once verbal consent was obtained, right knee prepped with betadine, 18 gauge needle used to aspirated approximately 200cc bloody fluid from the right knee. he tolerated procedure well, bandaid applied to aspiration site. fluid sent as per orders. Coding
[2019-06-29] MEDS ORDERED: Nursing to Pharmacy Communication ONE (13:06)
[2019-06-29 13:18] LABS: Appearance Synovial Fluid BLOODY; Color Synovial Fluid RED; Mononuclear WBC Synovial 34.5 %; Polynuclear WBC Synovial 65.5 %; RBC Synovial Fluid (A) 1888000 /uL; Source Synovial Fluid KNEE; WBC Synovial Fluid (A) 7297 /ul (0-200)
[2019-06-29] MEDS ORDERED: WARFARIN SOD 5 MG TAB PO SCH (16:00)
[2019-06-29 19:42] LABS: Partial Thromboplastin Ratio 1.6; Partial Thromboplastin Time 42.6 Seconds (21.0-31.0)
[2019-06-30 03:06] LABS: Basophils # (auto) 0.07 K/uL (0-0.2); Basophils % (auto) 0.8 %; Eosinophils # (auto) 0.46 K/uL (0-0.5); Hematocrit (blood only) 39.9 % (42-52); Hemoglobin 13.5 g/dL (14.0-18.0); Immature Granulocytes # (auto) 0.04 K/uL (0.00-0.02); Immature Granulocytes % (auto) 0.4 %; Lymphocytes # (auto) 2.71 K/uL (1.2-3.4); Lymphocytes % (auto) 29.7 %; Mean Corpuscular Hemoglobin 30.5 pg (25-34); Mean Corpuscular Hgb Conc 33.8 g/dL (32-36); Mean Corpuscular Volume 90.3 fL (80-100); Mean Platelet Volume 8.8 fL (7.4-10.4); Monocytes % (auto) 6.6 %; Neutrophils # (auto) 5.23 K/uL (1.4-6.5); Neutrophils % (auto) 57.5 %; Platelet Count 276 K/uL (130-400); RDW Coefficient of Variation 12.7 % (11.5-14.5); Red Blood Count 4.42 M/uL (4.7-6.1); White Blood Count 9.11 K/uL (4.8-10.8)
[2019-06-30 03:11] LABS: INR 1.1 (0.9-1.1); Prothrombin Time 11.4 Seconds (9.0-12.0)
[2019-06-30 03:22] LABS: Partial Thromboplastin Ratio 2.2
[2019-06-30 03:26] LABS: Partial Thromboplastin Time 59.6 Seconds (21.0-31.0)
[2019-06-30 03:39] LABS: Albumin Globulin Ratio 0.8 (0.9-2); BUN Creatinine Ratio 13.6 (10-20); Bilirubin,Total 0.4 mg/dl (0.2-1); Calcium 8.7 mg/dl (8.5-10.1); Creatinine Clr Calc Pharmacy 87.8 ml/min; Est GFR (African American) 102.3; Est GFR (Non-African American) 88.3
[2019-06-30] MEDS: HEPARIN SODIUM/DEXTROSE 25,000 UNITS/500 ML BAG IV SCH ×2 (07:52→22:26)
[2019-06-30] MEDS: ROSUVASTATIN CALCIUM 20 MG TAB PO SCH (07:55)
--- NOTE | 2019-06-30 08:23 | Hospitalist Progress Note ---
Date of Service June 30, 2019 Assessment & Plan (1) Pre-syncope: -patient is from correctional facility -as per ED notes on 06/26/2019: "The patient is a 63 year old male presenting to the Emergency Department via EMS complaining of an episode of a seizure occurring less than 1 hour ago. The patient reports that he went up to go to breakfast and began to seize. He states that he fell slowly to the ground and a multisensor intelligence officer explained that the patient was lowered to the ground. The multisensor intelligence officer reports that the patient seized for 1 to 2 minutes. The patient notes that he felt dizzy before he seized. He adds that he received normal saline from EMS SENIOR LINUX UNIX ADMINISTRATOR. The patient reports that he has never seized before. He states that he has hyperlipidemia and no pertinent past surgical history. The patient denies hitting his head, headache and abdominal pain." -admitting Hospitalist team that presyncopal symptoms and Atypical chest discomfort with exertion and sitting up, appears to be worsening over the past two weeks. -Patient had elevated troponin levels and was started on heparin drip on 06/27/2019 in case of acute coronary artery syndrome -06/27/2019: Patient is hemodynamically stable, normal heart rate, normal blood pressure, breathing on room air, awake and alert. Already on IV heparin drip anticoagulation initially because of elevated troponins.However, because of abnormal echocardiogram concerning for right heart strain or cor pulmonale, personal banker recommended CTA chest to rule out pulmonary embolism. Patient is found to have saddle embolism. Pulmonary consult recommended transfer to the ICU for lysis of the pulmonary embolism with TPA. TPA was given on 06/27/2019 -06/28/2019. Plans are for patient to remain in ICU until 24 hour has elapse from TPA administration. Patient on IV heparin drip. no distress. breathing on room air. no chest pain. no dizziness. no headache. patient will remain on IV heparin drip after transfer from telemetry to ICU and given 1 dose of 5 mg coumadin. labs sent include blood work for Factor V Leiden mutation, prothrombin mutation, Protein C, Protesin S Right Knee Effusion -06/29/2019: alerted by nurse that patient has right knee swelling and cannot weight bear on the right leg, and patient seen by Dr. Amin pulmonary/critical care physician and he comments the patient may have had bled into right knee. orthopedic tapped right knee after IV heparin temporarily held. Many RBCs on the tap. Specimen were sent including to rule out Lyme. patient then resumed the IV heparin drip -06/30/2019 while it is unclear as of this time whether any evidence of Lyme as cause of right knee effusion, there were indeed many WBC in the tap and so will start empirically ceftriaxone 2 grams daily starting on 06/30/2019 -patient remains on IV heparin drip and again on 06/30/2019 will be resumed coumadin 5 mg daily and target is INR of 2 to 3 (2) Pulmonary embolism: Acute Pulmonary embolism with cor pulmonale -management as above -discharge as determined by anticoagulation bridge of IV herparin to coumadin with a therapeutic INR of between 2 to 3 for 2 days in a row acute right lower extremity DVT -patient given TPA in the ICU on 06/27/2019, subsequent workup found right lower extremity DVT on ultrasound and therefor is the source of the pulmonary embolism 1. Extensive right lower extremity DVT 2. No DVT within the left lower extremity -management of anticoagulation as above -prn pain medications (3) Chest pain: -pleuritic chest pain from pulmonary embolism -chest pain generally resolved (4) Elevated troponin: -elevated troponins on admission likely from pulmonary embolism (5) Hyperlipidemia: -resume statin (6) DVT prophylaxis: on IV heparin with daily coumadin Admission and Anticipated Discharge Date Admission Date: June 26, 2019. discharge as determined by anticoagulation bridge to coumadin therapeutic INR x 2 days in a row Subjective right knee effusion generally resolved as the right knee generally back to normal size. has ice over the right knee. Patient denies pleuritic chest pain. breathing on room air. no distress. no abdomen pain. no nausea. no vomiting Review of Systems Review of Systems: All systems reviewed & are unremarkable except as noted in HPI & below Physical Exam Constitutional: WD/WN, vitals as above comfortable Eyes: PERRL, conjunctivae normal, anicteric sclerae EOM intact bilaterally ENMT: external ear and nose normal, oropharynx normal Neck: normal visual inspection Respiratory: normal respiratory effort, lungs clear to auscultation Cardiovascular: Rate/Rhythm: regular rate and regular rhythm Gastrointestinal (Abdomen): normal bowel sounds, soft, nontender, no hepatosplenomegaly Musculoskeletal: Head/Neck/Chest: normocephalic and head atraumatic right knee effusion generally resolved as the right knee generally back to normal size. has ice over the right knee Neurologic: PERRL, EOMI, accommodation nl, no face palsy, no dysarthria CN's II-XI intact bilaterally Psychiatric: A+Ox3, euthymic affect Results & Data ([facility]) Vital Signs (Past 12 Hours) Vital Signs Temp Pulse Pulse Pulse Resp BP Pulse Ox 06/30/19 07:01 36.8 C 52 L 17 147/75 H 95 06/30/19 03:06 37.3 C 51 L 18 125/74 96 06/29/19 23:11 69 06/29/19 22:53 37.1 C 56 L 16 142/77 H 95 (1) Chest pain Chest pain type: unspecified Qualified Code(s): R07.9 - Chest pain, unspecified
[2019-06-30] MEDS: cefTRIAXone SODIUM 2,000 MG in DEXTROSE 5% 50 ML IV SCH (09:07)
[2019-06-30] MEDS: WARFARIN SOD 5 MG TAB PO SCH (16:12)
[2019-07-01 06:40] LABS: Basophils # (auto) 0.05 K/uL (0-0.2); Basophils % (auto) 0.5 %; Eosinophils # (auto) 0.38 K/uL (0-0.5); Hematocrit (blood only) 40.7 % (42-52); Hemoglobin 13.7 g/dL (14.0-18.0); Immature Granulocytes # (auto) 0.03 K/uL (0.00-0.02); Immature Granulocytes % (auto) 0.3 %; Lymphocytes # (auto) 2.83 K/uL (1.2-3.4); Lymphocytes % (auto) 29.7 %; Mean Corpuscular Hemoglobin 30.1 pg (25-34); Mean Corpuscular Hgb Conc 33.7 g/dL (32-36); Mean Corpuscular Volume 89.5 fL (80-100); Mean Platelet Volume 8.6 fL (7.4-10.4); Monocytes # (auto) 0.67 K/uL (0.11-0.59); Neutrophils # (auto) 5.56 K/uL (1.4-6.5); Neutrophils % (auto) 58.5 %; Platelet Count 353 K/uL (130-400); RDW Coefficient of Variation 12.9 % (11.5-14.5); RDW Standard Deviation 41.2 fL (36.4-46.3); Red Blood Count 4.55 M/uL (4.7-6.1); White Blood Count 9.52 K/uL (4.8-10.8)
[2019-07-01 07:03] LABS: INR 1.1 (0.9-1.1); Partial Thromboplastin Ratio 1.8; Prothrombin Time 11.4 Seconds (9.0-12.0)
[2019-07-01 07:06] LABS: Partial Thromboplastin Time 47.9 Seconds (21.0-31.0)
[2019-07-01] MEDS: ROSUVASTATIN CALCIUM 20 MG TAB PO SCH (08:32)
[2019-07-01] MEDS: cefTRIAXone SODIUM 2,000 MG in DEXTROSE 5% 50 ML IV SCH (08:32)
--- NOTE | 2019-07-01 09:56 | Hospitalist Progress Note ---
Date of Service July 01, 2019 Assessment & Plan (1) Pre-syncope: -patient is from correctional facility -as per ED notes on 06/26/2019: "The patient is a 63 year old male presenting to the Emergency Department via EMS complaining of an episode of a seizure occurring less than 1 hour ago. The patient reports that he went up to go to breakfast and began to seize. He states that he fell slowly to the ground and a certified juvenile probation officer explained that the patient was lowered to the ground. The certified juvenile probation officer reports that the patient seized for 1 to 2 minutes. The patient notes that he felt dizzy before he seized. He adds that he received normal saline from EMS BRAKE REPAIRER RAILROAD. The patient reports that he has never seized before. He states that he has hyperlipidemia and no pertinent past surgical history. The patient denies hitting his head, headache and abdominal pain." -admitting Hospitalist team that presyncopal symptoms and Atypical chest discomfort with exertion and sitting up, appears to be worsening over the past two weeks. -Patient had elevated troponin levels and was started on heparin drip on 06/27/2019 in case of acute coronary artery syndrome -06/27/2019: Patient is hemodynamically stable, normal heart rate, normal blood pressure, breathing on room air, awake and alert. Already on IV heparin drip anticoagulation initially because of elevated troponins.However, because of abnormal echocardiogram concerning for right heart strain or cor pulmonale, pocket machine operator recommended CTA chest to rule out pulmonary embolism. Patient is found to have saddle embolism. Pulmonary consult recommended transfer to the ICU for lysis of the pulmonary embolism with TPA. TPA was given on 06/27/2019 -06/28/2019. Plans are for patient to remain in ICU until 24 hour has elapse from TPA administration. Patient on IV heparin drip. no distress. breathing on room air. no chest pain. no dizziness. no headache. patient will remain on IV heparin drip after transfer from telemetry to ICU and given 1 dose of 5 mg coumadin. labs sent include blood work for Factor V Leiden mutation, prothrombin mutation, Protein C, Protesin S Right Knee Effusion -06/29/2019: alerted by nurse that patient has right knee swelling and cannot weight bear on the right leg, and patient seen by Dr. Amin pulmonary/critical care physician and he comments the patient may have had bled into right knee. orthopedic tapped right knee after IV heparin temporarily held. Many RBCs on the tap. Specimen were sent including to rule out Lyme. patient then resumed the IV heparin drip -06/30/2019 while it is unclear as of this time whether any evidence of Lyme as cause of right knee effusion, there were indeed many WBC in the tap and so will start empirically ceftriaxone 2 grams daily starting on 06/30/2019 -patient remains on IV heparin drip and again on 06/30/2019 resumed coumadin 5 mg daily and target is INR of 2 to 3 07/01/2019: right knee swelling, some warmth over the right knee compared to normal left knee. Hemoglobin is stable around 13. patient reports he has been able to bear weight and walk to the bathroom. no chest pain. no shortness of breath. no abdomen pain. no dizziness. no headache. will have nursing staff shaun up the area of the right knee persistent swelling or measure the size. INR is 1.1 while on IV heparin drip. will continue IV heparin and daily coumadin for now. (2) Pulmonary embolism: Acute Pulmonary embolism with cor pulmonale -management as above -discharge as determined by anticoagulation bridge of IV herparin to coumadin with a therapeutic INR of between 2 to 3 for 2 days in a row acute right lower extremity DVT -patient given TPA in the ICU on 06/27/2019, subsequent workup found right lower extremity DVT on ultrasound and therefor is the source of the pulmonary embolism 1. Extensive right lower extremity DVT 2. No DVT within the left lower extremity -management of anticoagulation as above -prn pain medications (3) Chest pain: -pleuritic chest pain from pulmonary embolism -chest pain generally resolved (4) Elevated troponin: -elevated troponins on admission likely from pulmonary embolism (5) Hyperlipidemia: -continue statin (6) DVT prophylaxis: on IV heparin with daily coumadin Admission and Anticipated Discharge Date Admission Date: June 26, 2019 Subjective right knee swelling, some warmth over the right knee compared to normal left knee. Hemoglobin is stable around 13. patient reports he has been able to bear weight and walk to the bathroom. no chest pain. no shortness of breath. no abdomen pain. no dizziness. no headache. patient Review of Systems Review of Systems: All systems reviewed & are unremarkable except as noted in HPI & below Physical Exam Constitutional: WD/WN, vitals as above comfortable Eyes: PERRL, conjunctivae normal, anicteric sclerae EOM intact bilaterally ENMT: external ear and nose normal, oropharynx normal Neck: normal visual inspection Respiratory: normal respiratory effort, lungs clear to auscultation Cardiovascular: Rate/Rhythm: regular rate and regular rhythm Gastrointestinal (Abdomen): normal bowel sounds, soft, nontender, no hepatosplenomegaly Musculoskeletal: Head/Neck/Chest: normocephalic and head atraumatic right knee swelling, some warmth over the right knee compared to normal left knee. Neurologic: PERRL, EOMI, accommodation nl, no face palsy, no dysarthria CN's II-XI intact bilaterally Psychiatric: A+Ox3, euthymic affect Results & Data ([facility]) Vital Signs (Past 12 Hours) Vital Signs Temp Pulse Pulse Pulse Resp BP Pulse Ox 07/01/19 07:08 36.7 C 52 L 18 138/81 96 07/01/19 03:47 37.0 C 58 L 18 146/79 H 95 07/01/19 00:16 37.1 C 53 L 20 138/84 95 07/01/19 00:00 64 (1) Chest pain Chest pain type: unspecified Qualified Code(s): R07.9 - Chest pain, unspecified
[2019-07-01] MEDS: HEPARIN SODIUM/DEXTROSE 25,000 UNITS/500 ML BAG IV SCH (13:27)
[2019-07-01] MEDS: WARFARIN SOD 5 MG TAB PO SCH (16:54)
[2019-07-02] MEDS: HEPARIN SODIUM/DEXTROSE 25,000 UNITS/500 ML BAG IV SCH ×2 (03:36→20:46)
[2019-07-02 07:03] LABS: Basophils # (auto) 0.05 K/uL (0-0.2); Basophils % (auto) 0.5 %; Eosinophils # (auto) 0.27 K/uL (0-0.5); Eosinophils % (auto) 2.9 %; Hematocrit (blood only) 40.5 % (42-52); Hemoglobin 13.5 g/dL (14.0-18.0); Immature Granulocytes # (auto) 0.03 K/uL (0.00-0.02); Immature Granulocytes % (auto) 0.3 %; Lymphocytes # (auto) 2.83 K/uL (1.2-3.4); Lymphocytes % (auto) 30.6 %; Mean Corpuscular Hemoglobin 29.6 pg (25-34); Mean Corpuscular Hgb Conc 33.3 g/dL (32-36); Mean Corpuscular Volume 88.8 fL (80-100); Mean Platelet Volume 8.8 fL (7.4-10.4); Monocytes # (auto) 0.71 K/uL (0.11-0.59); Monocytes % (auto) 7.7 %; Neutrophils # (auto) 5.35 K/uL (1.4-6.5); Platelet Count 332 K/uL (130-400); RDW Coefficient of Variation 12.7 % (11.5-14.5); RDW Standard Deviation 40.4 fL (36.4-46.3); Red Blood Count 4.56 M/uL (4.7-6.1); White Blood Count 9.24 K/uL (4.8-10.8)
[2019-07-02 07:39] LABS: Albumin Level 3.2 gm/dl (3.4-5.0); BUN Creatinine Ratio 17.2 (10-20); Calcium 8.9 mg/dl (8.5-10.1); Creatinine Clr Calc Pharmacy 83.5 ml/min; Est GFR (African American) 94.9; Est GFR (Non-African American) 81.9; Potassium 3.9 mmol/L (3.5-5.1)
[2019-07-02 07:41] LABS: Albumin Globulin Ratio 0.8 (0.9-2); Bilirubin,Total 0.5 mg/dl (0.2-1); Globulin 4.1 gm/dl (2.5-4.0); Total Protein 7.3 gm/dl (6.4-8.2)
[2019-07-02 07:53] LABS: INR 1.2 (0.9-1.1); Partial Thromboplastin Ratio 1.9; Prothrombin Time 12.5 Seconds (9.0-12.0)
[2019-07-02 08:02] LABS: Partial Thromboplastin Time 52.4 Seconds (21.0-31.0)
--- NOTE | 2019-07-02 08:57 | Orthopedic Progress Note ---
Date of Service July 01, 2019 Assessment & Plan (1) Hemarthrosis: Arthrocentesis negative for infectious process, appears to be hemarthrosis secondary to anticoagulation, follow cultures till final, continue with conservative treatments at this time, monitor anticoagulation closely, increased risk for reoccurrence secondary to blood thinner for PE. WBAT RLE, PT/OT, compressive wrap/felipe, ICE and elevation. Admission and Anticipated Discharge Date Admission Date: June 26, 2019 Subjective Patient seen 07/01/19 laying in bed, comfortable, pain controlled, improved since arthrocentesis, ambulating better he reports Review of Systems Review of Systems: All systems reviewed & are unremarkable except as noted in HPI & below Constitutional: as per Subjective / HPI Physical Exam Physical Exam: RLE NVSI +EHL/FHL/TA/GS SILT grossly, +2 DP pulse, compartments soft NT, moderate hemarthrosis/effusion Constitutional: WD/WN, vitals as above Results & Data ([facility]) Vital Signs (Past 12 Hours) Vital Signs Temp Pulse Pulse Resp BP Pulse Ox 07/02/19 07:11 36.8 C 62 17 133/81 90 07/02/19 03:15 36.8 C 54 L 18 132/82 95 07/01/19 23:57 54 L 07/01/19 23:16 36.8 C 55 L 18 146/79 H 95 Laboratory Results 07/02/19 07/02/19 07/02/19 Range/Units 06:24 06:24 06:24 WBC 9.24 (4.8-10.8) K/uL RBC 4.56 L (4.7-6.1) M/uL Hgb 13.5 L (14.0-18.0) g/dL Hct 40.5 L (42-52) % MCV 88.8 (80-100) fL MCH 29.6 (25-34) pg MCHC 33.3 (32-36) g/dL RDW Std Deviation 40.4 (36.4-46.3) fL RDW Coeff of Morales 12.7 (11.5-14.5) % Plt Count 332 (130-400) K/uL MPV 8.8 (7.4-10.4) fL Immature Gran % (Auto) 0.3 % Neut % (Auto) 58.0 % Lymph % (Auto) 30.6 % [place] % (Auto) 7.7 % Eos % (Auto) 2.9 % Baso % (Auto) 0.5 % Immature Gran # (Auto) 0.03 H (0.00-0.02) K/uL Neut # (Auto) 5.35 (1.4-6.5) K/uL Lymph # (Auto) 2.83 (1.2-3.4) K/uL [place]igo # (Auto) 0.71 H (0.11-0.59) K/uL Eos # (Auto) 0.27 (0-0.5) K/uL Baso # (Auto) 0.05 (0-0.2) K/uL PT 12.5 H (9.0-12.0) Seconds INR 1.2 H (0.9-1.1) APTT 52.4 H* (21.0-31.0) Seconds PTT Ratio 1.9 Sodium 135 L (136-145) mmol/L Potassium 3.9 (3.5-5.1) mmol/L Chloride 103 (98-107) mmol/L Carbon Dioxide 27 (21-32) mmol/L Anion Gap 5.0 (3-11) BUN 17 (7-18) mg/dl Creatinine 0.99 (0.6-1.4) mg/dl Est Cr Clr Drug Dosing 83.5 ml/min Est GFR ( Amer) 94.9 Est GFR (Non-Af Amer) 81.9 BUN/Creatinine Ratio 17.2 (10-20) Glucose 106 H (70-99) mg/dl Calcium 8.9 (8.5-10.1) mg/dl Total Bilirubin 0.5 (0.2-1) mg/dl AST 30 (15-37) U/L ALT 44 (12-78) U/L Alkaline Phosphatase 91 (45-117) U/L Total Protein 7.3 (6.4-8.2) gm/dl Albumin 3.2 L (3.4-5.0) gm/dl Globulin 4.1 H (2.5-4.0) gm/dl Albumin/Globulin Ratio 0.8 L (0.9-2)
[2019-07-02] MEDS: cefTRIAXone SODIUM 2,000 MG in DEXTROSE 5% 50 ML IV SCH (10:03)
[2019-07-02] MEDS: ROSUVASTATIN CALCIUM 20 MG TAB PO SCH (10:04)
[2019-07-02 11:14] LABS: Lyme DNA PCR CSF or Synovial Not detected (Not Detected); Lyme DNA Source Synovial Fluid
[2019-07-02] MEDS: WARFARIN SOD 7.5 MG TAB PO SCH (16:35)
--- NOTE | 2019-07-02 19:38 | Hospitalist Progress Note ---
Date of Service July 02, 2019 Assessment & Plan (1) Pulmonary embolism: (1) acute pulmonary embolism with cor pulmonale Per previous attending's notes, Dr. Trenton Awad -admitting Hospitalist team that presyncopal symptoms and Atypical chest discomfort with exertion and sitting up, appears to be worsening over the past two weeks. CT angiogram: 1. Saddle pulmonary embolus with extensive bilateral pulmonary emboli as above. 2. There is no airspace consolidation typical for pneumonia or pleural effusion. 3. A pathologically indeterminant 7 mm pulmonary nodule is seen in the left lower lobe. This can be followed as per the Fleischner criteria. See below. echocardiogram concerning for right heart strain or cor pulmonale, psychologist personnel recommended Transferred to the ICU for lysis of the pulmonary embolism with TPA. TPA was given on 06/27/2019 Per coagulable work-up pending Currently on Coumadin plus heparin bridge INR 1.2 Increase Coumadin to 7.5 mg, monitor INR Acute right lower extremity DVT Per Dr. Trenton Awad's notes: -patient given TPA in the ICU on 06/27/2019, subsequent workup found right lower extremity DVT on ultrasound and therefor is the source of the pulmonary embolism 1. Extensive right lower extremity DVT 2. No DVT within the left lower extremity -management of anticoagulation as above -prn pain medications Right Knee Effusion, likely hematoma -Status post arthrocentesis by orthopedic service -Synovial fluid cultures negative so Synovial fluid analysis reveals numerous RBCs -Continue ceftriaxone for now -Continue to monitor closely while on Coumadin Chest pain: -pleuritic chest pain from pulmonary embolism Elevated troponin: -elevated troponins on admission likely from pulmonary embolism Hyperlipidemia: -continue statin Disposition [facility] to [facility] medically Admission and Anticipated Discharge Date Admission Date: June 26, 2019 Subjective Follow-up for PE, DVT, knee effusion Seen resting in bed, comfortable, not in distress States he feels fine overall today No shortness of breath, chest pain, palpitations, dizziness No active bleeding noted Reports right knee pain is improved Denies other symptom Review of Systems Review of Systems: All systems reviewed & are unremarkable except as noted in HPI & below Physical Exam Physical Exam: General- oriented x 3, not in distress, speaks in sentences with no effort or accessory muscle use Head- atraumatic Eyes- PERRL, EOMI, anicteric ENT- oropharynx clear Neck- supple, no JVD, no adenopathy, no thyromegaly; carotids +2/2, no bruits appreciated Lungs- clear to auscultation bilaterally, no rales/wheezes Heart- normal rate, regular rhythm; no murmur, no gallop, no rub appreciated Abdomen- normal bowel sounds, nondistended, soft, nontender, no masses or hepatosplenomegaly Extremities- Positive mild edema of the right knee, no warmth, no erythema no tenderness no pretibial edema, no calf tenderness; peripheral pulses intact Neuro- alert, oriented x 3; CN 2-12 grossly intact; motor 5/5 bilaterally;sensation 100% on all extremities; no other gross focal neurologic deficits Skin- warm & dry Results & Data ([facility]) Vital Signs (Past 12 Hours) Vital Signs Temp Pulse Pulse Resp BP Pulse Ox 07/02/19 16:00 65 07/02/19 15:19 37.5 C 64 20 128/83 91 07/02/19 11:34 36.9 C 68 18 126/73 91 07/02/19 08:00 59 L
[2019-07-03 07:17] LABS: Basophils # (auto) 0.05 K/uL (0-0.2); Basophils % (auto) 0.4 %; Eosinophils # (auto) 0.14 K/uL (0-0.5); Eosinophils % (auto) 1.2 %; Hematocrit (blood only) 42.7 % (42-52); Hemoglobin 14.6 g/dL (14.0-18.0); Immature Granulocytes # (auto) 0.03 K/uL (0.00-0.02); Immature Granulocytes % (auto) 0.3 %; Lymphocytes # (auto) 2.68 K/uL (1.2-3.4); Lymphocytes % (auto) 23.7 %; Mean Corpuscular Hemoglobin 30.1 pg (25-34); Mean Corpuscular Hgb Conc 34.2 g/dL (32-36); Mean Platelet Volume 8.3 fL (7.4-10.4); Monocytes # (auto) 0.85 K/uL (0.11-0.59); Monocytes % (auto) 7.5 %; Neutrophils # (auto) 7.56 K/uL (1.4-6.5); Neutrophils % (auto) 66.9 %; Platelet Count 336 K/uL (130-400); RDW Coefficient of Variation 12.7 % (11.5-14.5); RDW Standard Deviation 40.4 fL (36.4-46.3); Red Blood Count 4.85 M/uL (4.7-6.1); White Blood Count 11.31 K/uL (4.8-10.8)
[2019-07-03 07:39] LABS: INR 1.5 (0.9-1.1); Partial Thromboplastin Ratio 2.4
[2019-07-03 07:43] LABS: BUN Creatinine Ratio 20.8 (10-20); Calcium 9.1 mg/dl (8.5-10.1); Creatinine Clr Calc Pharmacy 87.9 ml/min; Est GFR (Non-African American) 87.2; Partial Thromboplastin Time 65.2 Seconds (21.0-31.0); Potassium 3.7 mmol/L (3.5-5.1)
[2019-07-03] MEDS: ROSUVASTATIN CALCIUM 20 MG TAB PO SCH (08:57)
[2019-07-03] MEDS: cefTRIAXone SODIUM 2,000 MG in DEXTROSE 5% 50 ML IV SCH (09:03)
--- NOTE | 2019-07-03 11:12 | Hospitalist Progress Note ---
Date of Service July 03, 2019 Assessment & Plan (1) Pulmonary embolism: (1) acute pulmonary embolism with cor pulmonale Per previous attending's notes, Dr. Trenton Awad -admitting Hospitalist team that presyncopal symptoms and Atypical chest discomfort with exertion and sitting up, appears to be worsening over the past two weeks. CT angiogram: 1. Saddle pulmonary embolus with extensive bilateral pulmonary emboli as above. 2. There is no airspace consolidation typical for pneumonia or pleural effusion. 3. A pathologically indeterminant 7 mm pulmonary nodule is seen in the left lower lobe. This can be followed as per the Fleischner criteria. See below. echocardiogram concerning for right heart strain or cor pulmonale, extras casting director recommended Transferred to the ICU for lysis of the pulmonary embolism with TPA. TPA was given on 06/27/2019 Per coagulable work-up pending Currently on Coumadin plus heparin bridge INR increased to 1.5 Continue Coumadin to 7.5 mg, monitor INR Acute right lower extremity DVT Per Dr. Trenton Awad's notes: -patient given TPA in the ICU on 06/27/2019, subsequent workup found right lower extremity DVT on ultrasound and therefor is the source of the pulmonary embolism 1. Extensive right lower extremity DVT 2. No DVT within the left lower extremity -management of anticoagulation as above -prn pain medications Right Knee Effusion, likely hematoma -Status post arthrocentesis by orthopedic service -Synovial fluid cultures negative so far Synovial fluid analysis reveals numerous RBCs -DC ceftriaxone -hemoglobin stable -Continue to monitor closely while on Coumadin Chest pain: -pleuritic chest pain from pulmonary embolism Resolved Elevated troponin: -elevated troponins on admission likely from pulmonary embolism Hyperlipidemia: -continue statin Disposition Return to correctional facility when medically stable Admission and Anticipated Discharge Date Admission Date: June 26, 2019 Subjective Follow-up for acute PE, DVT, right knee hematoma Seen resting in bed, comfortable, not in distress Denies shortness of breath, chest pain Reports right knee pain is improving No other signs of bleeding No other symptoms Review of Systems Review of Systems: All systems reviewed & are unremarkable except as noted in HPI & below Physical Exam Physical Exam: General- oriented x 3, not in distress, speaks in sentences with no effort or accessory muscle use Eyes- anicteric Neck- no JVD Lungs- clear breath sounds bilaterally, no rales/wheezes Heart- normal rate, regular rhythm; no murmurs Abdomen- normal bowel sounds, nondistended, soft, nontender Extremities- no pretibial edema, no calf tenderness Right knee: Less edema, no warmth/erythema/tenderness Neuro- alert, oriented x 3; no gross focal neurologic deficits Skin- warm & dry Results & Data ([facility]) Vital Signs (Past 12 Hours) Vital Signs Temp Pulse Pulse Pulse Resp BP Pulse Ox 07/03/19 07:47 37 C 61 16 123/77 93 07/03/19 07:35 57 L 07/03/19 05:00 36.6 C 64 18 143/77 H 91 07/03/19 00:34 37.5 C 69 18 131/84 89 L
[2019-07-03] MEDS: HEPARIN SODIUM/DEXTROSE 25,000 UNITS/500 ML BAG IV SCH (11:57)
[2019-07-03] MEDS: WARFARIN SOD 7.5 MG TAB PO SCH (17:40)
[2019-07-04] MEDS: HEPARIN SODIUM/DEXTROSE 25,000 UNITS/500 ML BAG IV SCH (02:53)
[2019-07-04 05:51] LABS: Basophils # (auto) 0.06 K/uL (0-0.2); Basophils % (auto) 0.6 %; Eosinophils # (auto) 0.22 K/uL (0-0.5); Eosinophils % (auto) 2.2 %; Hematocrit (blood only) 41.9 % (42-52); Hemoglobin 14.3 g/dL (14.0-18.0); Immature Granulocytes # (auto) 0.07 K/uL (0.00-0.02); Immature Granulocytes % (auto) 0.7 %; Lymphocytes # (auto) 3.02 K/uL (1.2-3.4); Lymphocytes % (auto) 29.9 %; Mean Corpuscular Hemoglobin 30.4 pg (25-34); Mean Corpuscular Hgb Conc 34.1 g/dL (32-36); Mean Platelet Volume 8.6 fL (7.4-10.4); Monocytes # (auto) 0.93 K/uL (0.11-0.59); Monocytes % (auto) 9.2 %; Neutrophils # (auto) 5.79 K/uL (1.4-6.5); Neutrophils % (auto) 57.4 %; Platelet Count 353 K/uL (130-400); RDW Coefficient of Variation 12.8 % (11.5-14.5); RDW Standard Deviation 41.8 fL (36.4-46.3); Red Blood Count 4.71 M/uL (4.7-6.1); White Blood Count 10.09 K/uL (4.8-10.8)
[2019-07-04 06:00] LABS: INR 1.8 (0.9-1.1); Prothrombin Time 17.7 Seconds (9.0-12.0)
[2019-07-04 06:26] LABS: BUN Creatinine Ratio 19.4 (10-20); Calcium 9.3 mg/dl (8.5-10.1); Creatinine Clr Calc Pharmacy 91.8 ml/min; Est GFR (African American) 106.5; Est GFR (Non-African American) 91.9; Potassium 3.9 mmol/L (3.5-5.1)
[2019-07-04 06:30] LABS: Partial Thromboplastin Ratio 2.6
[2019-07-04 06:36] LABS: Partial Thromboplastin Time 69.3 Seconds (21.0-31.0)
[2019-07-04] MEDS: ROSUVASTATIN CALCIUM 20 MG TAB PO SCH (08:14)
[2019-07-04 13:36] LABS: Partial Thromboplastin Ratio 2.2
[2019-07-04 13:40] LABS: Partial Thromboplastin Time 60.3 Seconds (21.0-31.0)
[2019-07-04] MEDS: WARFARIN SOD 7.5 MG TAB PO SCH (15:24)
--- NOTE | 2019-07-04 17:08 | Hospitalist Progress Note ---
Date of Service July 04, 2019 Assessment & Plan (1) Pulmonary embolism: (1) Acute pulmonary embolism with cor pulmonale Per previous attending's notes, Dr. Trenton Awad CT angiogram: 1. Saddle pulmonary embolus with extensive bilateral pulmonary emboli as above. 2. There is no airspace consolidation typical for pneumonia or pleural effusion. 3. A pathologically indeterminant 7 mm pulmonary nodule is seen in the left lower lobe. This can be followed as per the Fleischner criteria. See below. echocardiogram concerning for right heart strain or cor pulmonale, resource efficiency manager recommended Transferred to the ICU for lysis of the pulmonary embolism with TPA. TPA was given on 06/27/2019 Hyper coagulable work-up pending given Coumadin plus heparin bridge INR increased to 1.8 Continue Coumadin to 7.5 mg daily, monitor INR today Patient needs to be bridged with Lovenox 90 mg subcu twice daily with Coumadin , until INR is therapeutic x 48 hours Follow-up hypercoagulable workup done in the hospital May need indefinite anticoagulation secondary to unprovoked pulmonary embolism and DVT Refer to access liaison Acute right lower extremity DVT Per Dr. Trenton Awad's notes: -patient given TPA in the ICU on 06/27/2019, subsequent workup found right lower extremity DVT on ultrasound and therefor is the source of the pulmonary embolism 1. Extensive right lower extremity DVT 2. No DVT within the left lower extremity -management of anticoagulation as above -prn pain medications Right Knee Effusion, likely hematoma -Status post arthrocentesis by orthopedic service -Synovial fluid cultures: Negative Acid-fast bacilli of the synovial fluid culture: Pending Synovial fluid analysis reveals numerous RBCs -Was given ceftriaxone -Orthopedic service okay with anticoagulation with close monitoring of the right knee -hemoglobin stable so far while on heparin and Coumadin -Continue to monitor closely while on Coumadin and Lovenox Chest pain: -pleuritic chest pain from pulmonary embolism Resolved Elevated troponin: -elevated troponins on admission likely from pulmonary embolism Hyperlipidemia: -continue statin Disposition Return to correctional facility Refer to access liaison for unprovoked pulmonary embolism and DVT Admission and Anticipated Discharge Date Admission Date: June 26, 2019 Subjective ff up for acute PE, DVT seen resting in bed, comfortable States he feels fine overall Denies chest pain, shortness of breath, palpitations, dizzy Right knee pain improving No other symptoms States he is agreeable for discharge today as well Review of Systems Review of Systems: All systems reviewed & are unremarkable except as noted in HPI & below Physical Exam Physical Exam: General- oriented x 3, not in distress, speaks in sentences with no effort or accessory muscle use Eyes- anicteric Neck- no JVD Lungs- clear BS bilaterally, no crackles or wheeze Heart- normal rate, regular rhythm; no murmurs Abdomen- normal bowel sounds, nondistended, soft, nontender Extremities- no pretibial edema, no calf tenderness Right knee-very minimal edema, warmth, no tenderness Neuro- alert, oriented x 3; no gross focal neurologic deficits Skin- warm & dry Results & Data ([facility]) Vital Signs (Past 12 Hours) Vital Signs Temp Pulse Pulse Resp BP Pulse Ox 07/04/19 16:00 36.3 C L 51 L 17 124/76 95 07/04/19 14:59 60 07/04/19 11:52 36.3 C L 67 18 123/76 94 07/04/19 08:54 58 L 07/04/19 08:07 36.6 C 65 20 118/71 93 Laboratory Results Laboratory Results - last 24 hr 07/04/19 07/04/19 07/04/19 05:27 05:27 05:27 WBC 10.09 RBC 4.71 Hgb 14.3 Hct 41.9 L MCV 89.0 MCH 30.4 MCHC 34.1 RDW Std Deviation 41.8 RDW Coeff of Morales 12.8 Plt Count 353 MPV 8.6 Immature Gran % (Auto) 0.7 Neut % (Auto) 57.4 Lymph % (Auto) 29.9 [place] % (Auto) 9.2 Eos % (Auto) 2.2 Baso % (Auto) 0.6 Immature Gran # (Auto) 0.07 H Neut # (Auto) 5.79 Lymph # (Auto) 3.02 [place] # (Auto) 0.93 H Eos # (Auto) 0.22 Baso # (Auto) 0.06 PT 17.7 H INR 1.8 H APTT PTT Ratio Sodium 136 Potassium 3.9 Chloride 105 Carbon Dioxide 25 Anion Gap 6.0 BUN 17 Creatinine 0.90 Est Cr Clr Drug Dosing 91.8 Est GFR ( Amer) 106.5 Est GFR (Non-Af Amer) 91.9 BUN/Creatinine Ratio 19.4 Glucose 108 H Calcium 9.3 07/04/19 07/04/19 05:27 12:57 WBC RBC Hgb Hct MCV MCH MCHC RDW Std Deviation RDW Coeff of Morales Plt Count MPV Immature Gran % (Auto) Neut % (Auto) Lymph % (Auto) [place] % (Auto) Eos % (Auto) Baso % (Auto) Immature Gran # (Auto) Neut # (Auto) Lymph # (Auto) [place] # (Auto) Eos # (Auto) Baso # (Auto) PT INR APTT 69.3 H* 60.3 H* PTT Ratio 2.6 2.2 Sodium Potassium Chloride Carbon Dioxide Anion Gap BUN Creatinine Est Cr Clr Drug Dosing Est GFR ( Amer) Est GFR (Non-Af Amer) BUN/Creatinine Ratio Glucose Calcium
--- NOTE | 2019-07-04 17:34 | Discharge Summary ---
Date of Service July 04, 2019 Admission HPI Per Admitting Provider 63 yo M with no prior history of seizures presented to the ER after a fall and episode of shaking at the [facility]. Per the records he was seen to be shaking, however, per the patient, he reports feeling like he was getting weak and his legs were going to give out when he went to the [employer] today prompting him to ease himself down onto the floor. He did not lose consciousness. He denies any tongue biting or loss of bladder control. The current guards were not present for the episode and are not sure what was witnessed by staff. On further examination the patient was asked to sit up. He reported feeling some discomfort in his chest that appeared to cause some mild distress. He reports feeling this when getting up in the morning two weeks ago, and over this time, has been avoiding activities to avoid onset of this chest discomfort and weakness in his legs. 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 However, it seems that in the past two weeks he has been purposely staying more sedentary. He denies recent infections, fevers or chills, doesn't drink alcohol and denies drug use. He is a nonsmoker. He reports no sleep deprivation and has not started any new medications. ROS is otherwise negative including no SOB, nausea, vomiting, blood per rectum, UTI symptoms (does report some weak stream), headache, visual changes. Admission Exam Per Admitting Provider CONSTITUTIONAL: WNWD, vitals as above, generally well-appearing EYES: EOMI bilaterally, PERRL, normal conjunctivae, no scleral icterus ENT: external ear and nose normal, oropharynx clear, edentulous, MMM, no tongue trauma NECK: trachea midline RESPIRATORY: clear to auscultation bilaterally, no crackles, rales or wheezes, normal respiratory effort CARDIOVASCULAR: regular rate and rhythm, S1 and 2 heard without murmurs, gallops or rubs, no JVD, no peripheral edema CHEST: inspection of chest was normal GASTROINTESTINAL: soft, nontender, nondistended MUSCULOSKELETAL: strength 5/5 throughout, head is normocephalic and atraumatic, neck supple, normal palpation of chest wall without tenderness SKIN: warm and dry NEUROLOGIC: patellar DTRs-could not elicit as patient straining, 2+BR reflex on right, unable to perform on left as patient was handcuffed. No facial palsy, no dysarthria. CN 2-12 grossly intact, no sensory deficit, normal cognition, normal speech, no tremor. Coordination: able to perform [id number] and Nara without issue. Gait not assessed as patient is a fall risk. PSYCHIATRIC: alert cooperative and oriented to person, place and time. Euthymic mood, makes good eye contact, language grossly intact, recent and remote memory grossly intact. Principal Diagnosis ACUTE PULMONARY EMBOLISM, ACUTE RIGHT LOWER EXTREMITY DVTS, RIGHT KNEE HEMATOMA Discharge Exam General- oriented x 3, not in distress, speaks in sentences with no effort or accessory muscle use Eyes- anicteric Neck- no JVD Lungs- clear BS bilaterally, no crackles or wheeze Heart- normal rate, regular rhythm; no murmurs Abdomen- normal bowel sounds, nondistended, soft, nontender Extremities- no pretibial edema, no calf tenderness Right knee-very minimal edema, warmth, no tenderness Neuro- alert, oriented x 3; no gross focal neurologic deficits Skin- warm & dry Discharge Data Allergies Allergy/AdvReac Type Severity Reaction Status Date / Time No Known Allergies Allergy Unverified 06/26/19 09:40 Consultations 06/26/19 12:57 ED Decision to Admit Stat 06/26/19 15:34 Consult Case Management - Discharge Planning Routine Consult Neurology Routine 06/27/19 07:22 Consult Cardiology Routine 06/27/19 10:44 Consult Pulmonology Routine 06/28/19 09:07 Consult Case Management - Discharge Planning Routine 06/29/19 09:06 Consult Orthopedic Surgery Routine Ordered Studies 06/26/19 09:18 CT head/brain wo con Stat IMPRESSION: 1. Presumed moderate to severe chronic small vessel ischemic change. The patchy nature of the disease makes the diagnosis less certain. Contrast enhanced brain MR could be considered for better evaluation to ensure the absence of underlying lesions. 2. No other evidence of acute intracranial abnormality. 06/26/19 10:19 MR brain seizure wo/w con Stat FINDINGS: Sagittal T1, axial diffusion, proton density and T2 weighted axial, coronal FLAIR, and pre and post axial T1-weighted images were acquired. These were supplemented with post gadolinium coronal T1 weighted images. No intra or extra-axial mass lesions are visualized. Axial diffusion-weighted images reveal no evidence of acute or subacute infarction. There is no evidence of ventricular dilatation. Proton density T2-weighted and FLAIR images reveal extensive scattered foci of increased T2 signal within the white matter, likely on a small vessel basis. The hippocampal formations appear symmetric. There are no abnormal flow voids. There is no evidence of pathologic enhancement. IMPRESSION: 1. No acute intracranial findings 2. No evidence of acute or subacute infarction 3. No evidence of intracranial mass 4. Extensive white matter disease likely on a small vessel ischemic basis 06/27/19 09:20 CT angio chest PE protocol Stat FINDINGS: Thyroid: Imaged portions of the thyroid gland are normal in size and attenuation. Thoracic aorta: There is mild atherosclerotic calcification of the thoracic aorta, with is normal in caliber and demonstrates standard 3-vessel arch anatomy. The thoracic aorta is not well opacified by IV contrast. Pulmonary vasculature: The pulmonary trunk is normal in caliber. There is saddle pulmonary embolus, with extensive thrombus within the main pulmonary arteries bilaterally which extends into all lobar branches. Segmental and subsegmental pulmonary emboli are present throughout all lobes. Heart: The heart is top normal in size and without pericardial effusion. The coronary arteries are densely calcified. Lungs and pleural spaces: Evaluation of the lung parenchyma is degraded by motion artifact. There is no airspace consolidation typical for pneumonia or pleural effusion. Scarring/atelectasis is noted at the lung bases. There is a 7 mm left lower lobe pulmonary nodule seen on image #92. The trachea and central airways are clear. Mediastinum: There is no mediastinal lymphadenopathy. Jackie: Clear. Axillae: There is no axillary lymphadenopathy. Upper abdomen: There is a small hiatal hernia. Partially visualized upper abdominal viscera is otherwise within normal limits. Skeletal structures: No lytic or blastic bony lesions are seen. IMPRESSION: 1. Saddle pulmonary embolus with extensive bilateral pulmonary emboli as above. 2. There is no airspace consolidation typical for pneumonia or pleural effusion. 3. A pathologically indeterminant 7 mm pulmonary nodule is seen in the left lower lobe. This can be followed as per the Fleischner criteria. See below. Please refer to below summary of Fleischner criteria recommendations for follow- up of incidental CT nodules (Cr Ortiz, Guidelines for management of small pulmonary nodules detected on CT scans: A statement from the Fleischner Society, Radiology 237: [phone].) SOLID NODULES Solitary nodule size: <6 mm * low risk patients: no follow-up needed * high risk patients: optional CT at 12 months Solitary nodule size: 6-8 mm * low risk patients: follow-up at 6-12 months, then consider further follow-up at 18-24 months * high risk patients: initial follow-up CT at 6-12 months and then at 18-24 months if no change Solitary nodule size: >8 mm * either low or high risk patients - consider follow-up CT at 3 months, and/or CT-PET, and/or biopsy Multiple nodules size: <6 mm * low risk patients: no routine follow-up * high risk patients: optional CT at 12 months Multiple nodules size: 6-8 mm * low risk patients: follow-up at 3-6 months, then consider further follow-up at 18-24 months * high risk patients: follow-up at 3-6 months, then at 18-24 months if no change Multiple nodules size: >8 mm * low risk patients: follow-up at 3-6 months, then consider further follow-up at 18-24 months * high risk patients: follow-up at 3-6 months, then at 18-24 months if no change Note: newly detected indeterminate nodule in persons 35 years of age or older. * low risk patients: minimal or absent history of smoking and/or other known risk factors * high risk patients: history of smoking or of other known risk factors (e.g. first degree relative with lung cancer, or exposure to asbestos, radon, uranium) * if a nodule up to 8 mm is partly solid or is ground glass further follow-up is required after 24 months to exclude possible slow growing adenocarcinoma (AMALIA) SUBSOLID NODULES Solitary pure ground-glass nodule * nodule size <6 mm - no CT follow-up required * nodule size >=6 mm - follow-up CT at 6-12 months, then every 2 years until 5 years Solitary part-solid nodule * nodule size <6 mm - no CT follow-up required * nodule size >=6 mm - follow-up CT at 3-6 months. If unchanged, and solid component remains <6 mm, then annual follow-up for 5 years Multiple subsolid nodules * nodule size <6 mm - follow-up CT at 3-6 months, consider further follow-up at 2 and 4 years if stable * nodule size >=6 mm - follow-up CT at 3-6 months, subsequent management based on the most suspicious nodule(s) 06/27/19 14:30 US venous doppler LE BI Routine FINDINGS: No DVT within the left lower extremity. There is occlusive thrombus seen within the right superficial femoral vein, popliteal vein, anterior tibial, posterior tibial, and peroneal veins. The right common femoral vein is patent. IMPRESSION: 1. Extensive right lower extremity DVT as described above. 2. No DVT within the left lower extremity. 06/27/19 16:49 US carotid doppler BI Routine IMPRESSION: 1. No hemodynamically significant stenosis or significant atherosclerotic plaquing. 2. Normal antegrade vertebral flow bilaterally. Hospital Course (1) Pulmonary embolism: (1) Acute pulmonary embolism with cor pulmonale Per previous attending's notes, Dr. Trenton Awad --Patient admitted initially admitted for presyncope, possible seizure presentation Work-up was negative --Found to have elevated troponins echocardiogram was performed and demonstrated heart strain or cor pulmonale, and CT angiogram ordered Left ventricular systolic function is normal EF is 60 to 65% Base posterior wall is mildly hypokinetic, otherwise normal wall motion Flattened septum is consistent with RV pressure overload The right ventricle is moderately dilated The right ventricular systolic function is moderate to severely reduced There is mild to moderate tricuspid regurgitation Estimated systolic pulmonary arterial pressure 50 mmHg Aortic valve sclerosis moderate, without significant aortic valvular stenosis Trivial loculated anterior pericardial effusion There are no echocardiographic indications of cardiac tamponade -- CT angiogram: 1. Saddle pulmonary embolus with extensive bilateral pulmonary emboli as above. 2. There is no airspace consolidation typical for pneumonia or pleural effusion. 3. A pathologically indeterminant 7 mm pulmonary nodule is seen in the left lower lobe. This can be followed as per the Fleischner criteria. See below. Transferred to the ICU for lysis of the pulmonary embolism with TPA. TPA was given on 06/27/2019 Hyper coagulable work-up pending given Coumadin plus heparin bridge INR gradually increased increased to 1.8 Continue Coumadin to 7.5 mg daily, monitor INR today Patient needs to be bridged with Lovenox 90 mg subcu every 12 hours with Coumadin , until INR is therapeutic x 48 hours, then DC Lovenox and continue with Coumadin Follow-up hypercoagulable workup done in the hospital May need indefinite anticoagulation secondary to unprovoked pulmonary embolism and DVT Refer to direct care worker Acute right lower extremity DVT Per Dr. Trenton Awad's notes: -patient given TPA in the ICU on 06/27/2019, subsequent workup found right lower extremity DVT on ultrasound and therefor is the source of the pulmonary embolism 1. Extensive right lower extremity DVT 2. No DVT within the left lower extremity -management of anticoagulation as above -prn pain medications Right Knee Effusion, likely hematoma -Status post arthrocentesis by orthopedic service -Synovial fluid cultures: Negative Acid-fast bacilli of the synovial fluid culture: Pending Synovial fluid analysis reveals numerous RBCs -Was given ceftriaxone -Orthopedic service okay with anticoagulation with close monitoring of the right knee -hemoglobin stable so far while on heparin and Coumadin -Continue to monitor closely while on Coumadin and Lovenox Pulmonary nodule, left lower lobe Incidental finding on CT angiogram: 3. A pathologically indeterminant 7 mm pulmonary nodule is seen in the left lower lobe. This can be followed as per the Fleischner criteria. See below. --Full CT angiogram report noted on procedure section above --Monitor and follow-up as outpatient Chest pain: -pleuritic chest pain from pulmonary embolism Resolved Elevated troponin: - 0.4 to 0.2 -elevated troponins on admission likely from pulmonary embolism Hyperlipidemia: -continue statin [facility]position [facility] to [facility] facility Refer to direct care worker for unprovoked pulmonary embolism and DVT Total Time Total Time Spent Total Time Spent (In Minutes): 60 minutes Discharge Plan Discharge Items Patient Disposition: [facility] Reason For Visit: SEIZURE, CHEST PAIN Discharge Diagnosis: Acute Pulmonary embolism with cor pulmonale Acute right lower extremity DVT Right knee hematoma Pre-syncope Elevated Troponins Activity: As commented below Activity Comment: Resume activity gradually as tolerated Non-emergency contact: Primary Care Provider Call non-emergency contact if: you have any medication questions, your symptoms worsen, your pain is not controlled, your pain is worsening, your pain is unusual for you, your pain is concerning for you and you have a fever Follow-up/Referrals: Melo BAKER [Primary Care Provider] - Diet: Heart Healthy Addtl Attending Provider Instructions: Please refer to accompanying hospital discharge summary for further details. Lovenox 90 mg subcutaneous every 12 hours started at [facility] at 6 PM on July 04, 2019. Next dose would be at July 05, 2019 at 6 AM. Pending Studies at Discharge: Yes Studies:: Monitor INR daily, monitor CBC Stand-Alone Forms: My [facility], Smoking Cessation Skilled Items Patient informed of condition?: Yes Discharge Level of Care: Other Communicable Disease: No Discharge Prognosis: Stable Lines: None Urinary Catheter: No Medications and DC Order Prescriptions: New warfarin [Coumadin] 7.5 mg Tablet 7.5 mg PO DAILY@1600 30 Days Qty: 30 RF: 2 enoxaparin 100 mg/mL Syringe 90 mg subcut Q12H 10 Days Qty: 18 RF: 2 Continued rosuvastatin [Crestor] 40 mg Tablet 40 mg PO DAILY RF: 0 Discharge Orders: Discharge Order (Routine); Ordered 07/04/19 Ordered By: Hernandez Guaman Admission Data Admit Date/Time: 06/26/19 13:44 Attending Provider: Hernandez Guaman Admit Provider: Porsha Becker Primary Care Provider: Melo BAKER Other Providers: Trenton Awad ; Porsha Becker ; Jimy Ayala ; Arthur Sung Gregory ; Efrain Jones
[2019-07-04] MEDS ORDERED: ENOXAPARIN 100 MG/1ML SYR SQ SCH (18:00)
[2019-07-05 13:45] LABS: Protein S Functional(Activity) 75 % (70-150)
== END 2019-07-04 19:32 | DRG 299 ==
LOC: ED 08:54 → 2S 13:44 → SUATTDRO 13:44 → 2S 14:40 → 1E 06-27 12:06 → 2S 06-28 17:14 → 2N 07-03 22:09